=== PATIENT | female | born 1960 | race Caucasian/White ===

== ENCOUNTER 2023-01-16 07:45 | Inpatient (IN) ==
[2023-01-16] MEDS ORDERED: ACETAMINOPHEN 1,000 MG/100 ML VIAL IV STA (08:04)
[2023-01-16] MEDS ORDERED: dexAMETHasone**PF** 10 MG/ML VIAL IV ONE (08:04)
[2023-01-16] MEDS ORDERED: LORazepam 2 MG/1 ML VIAL IV STA (08:04)
[2023-01-16] MEDS ORDERED: ALBUT/IPRATROP 3MG/0.5MG NEB 3 ML VIAL NEB ONE (08:04)
--- NOTE | 2023-01-16 08:08 | Emergency Department Note ---
Impression & Plan LLL pneumonia, Asthma exacerbation, Sepsis ED Provider Note Name: MACKENZIE MALIK Age: 62 Sex: F Arrives Via: Walk-In Informant: Patient ED Provider: Robbie Adrian MD Chief Complaint: Shortness of breath Impression: Impressions above Medical Decision Makin-year-old female with history of asthma, hypertension, asthma, hyperglycemia arrives for evaluation of worsening shortness of breath. Patient is unwell appearing with tachycardia fever and appears septic. Septic work-up initiated. She has a left lower lobe infiltrate on chest x-ray consistent with pneumonia likely post flu versus new viral infection. She was treated empirically with cefepime and azithromycin for community-acquired pneumonia. She was given 2 L normal saline bolus throughout her stay. She has not hypotensive or lactic acid remains good. I will note that fluid resuscitation was based off ideal body weight with a BMI greater than 30 as she received the 1.5 L fluid plus. Repeat examinations patient is well-hydrated heart rate is coming down. I do not feel she would be stable for discharge at this time given her examination. She was given some steroids and DuoNeb for diffuse wheezing likely an exacerbation of her COPD/asthma history. She was also given a small dose of Ativan as she was quite anxious with being sick. I would patient's oxygen started decreasing throughout her stay and this clearly was consistent with need for hospitalization. I do not feel that this is consistent with PE/dissection given the other clear etiology being pneumonia. Prior Medical Record and Triage/Nursing Notes reviewed by Me External chart review by me Differentials: Pneumonia, PE, dissection, pneumothorax, CHF, ACS, sepsis, COPD exacerbation amongst multiple other pathologies considered. Vital Signs: reviewed and remarkable for tachycardia, febrile, hypertensive Interventions: Tylenol IV, DuoNeb, Ativan IV, Decadron 10 mg IV, cefepime IV, azithromycin IV, normal saline bolus 2 L IV Labs:Reviewed and remarkable for elevated CRP amongst other abnormalities noted Imagin view chest x-ray interpreted by me reveals a left lower lobe infiltrate which is new EKG:As per my interpretation. Indication sepsis. Sinus tachycardia at 109 bpm with QTc 482. There is no ectopy nor ischemia. There is no previous EKG for comparison Cardiac/Tele Monitoring: Cardiac Monitoring: An Order was placed for continuous cardiac monitoring. The monitor shows a rate of 110 with a sinus tach rhythm. Consults:Hospitalist Plan: Disposition:Hospitalization. Condition: Fair History of Present Illness:62-year-old female arrives for evaluation of shortness of breath. Patient notes she had influenza 2 to 3 weeks ago. Over the last few days worsening shortness of breath cough, wheezing, congestion, fatigue. This morning worsening breathing difficulty. She notes she is having a lot of difficulty catching her breath. She was wheezing loudly at home without seems to have stopped. Denies any specific chest pain, syncope, back pain, nausea, vomiting, abdominal pain or other concerning signs or symptoms. No medications prior to arrival. Past History:See Below Home Medications:See Below Allergies:See Below Vitals:Blood Pressure: 171/100, Pulse 115, RR 20, T 38.4C, O2 95% on RA Physical Exam: GENERAL: Patient is ill appearing and in moderate distress. EYES: No scleral icterus, unremarkable pupils. ENT: Mucous membranes moist, no nasal congestion. NECK: No masses appreciated, nomeningismus, trachea is midline. RESPIRATORY: Tachypneic, dyspneic with diffuse tight lung sounds and rhonchi throughout the left lung. CARDIOVASCULAR: Tachycardic GASTROINTESTINAL: Abdomen soft, non-tender, no peritonitis.Bowel sounds positive.No masses appreciated. EXTREMITIES: Normal motion all extremities, no cyanosis, no edema. NEUROLOGIC: Alert and oriented, no focal neurologic deficit appreciated SKIN: No rash, no jaundice, no diaphoresis. PSYCH: Severely anxious, hyperventilating GCS: 15 ED Course: Times/Reassessments: Patient is vastly improved with fluids Ativan and breathing treatment. She does appear better but she is still clearly ill and I feel hospitalization is indicated especially as her oxygen has gradually worsened Robbie Adrian MD Past Med/Surg History Medical History (Updated 01/17/23 @ 13:48 by Robbie Adrian MD) Asthma GERD (gastroesophageal reflux disease) HTN (hypertension) Hypothyroidism Surgical History S/P ankle fusion S/P breast implant, silicone bilateral S/P cholecystectomy S/P hysterectomy S/P tonsillectomy Family History Other Diabetes Heart disease Hypercholesteremia Hypertension Social History Smoking Status: Never smoker Hx Alcohol Use: Yes Alcohol type: wine Hx Substance Use: No Preferred Language: Lithuanian Communication Ability: Effective Platform [employer] Required: No Beliefs That Will Affect Care: None Current Living Situation: Spouse Other Information That Helps Us Care for You: No Feels Safe at Home: Yes Safety Concerns: Feels Safe At This Time Assistive Devices: None Allergies Allergies Allergy/AdvReac Type Severity Reaction Status Date / Time Sulfa (Sulfonamide Allergy Verified 01/16/23 08:40 Antibiotics) doxycycline AdvReac Rash Verified 01/16/23 08:40 Home Meds Home Medications Medication Instructions Recorded Confirmed albuterol sulfate 90 mcg/actuation 1 puffs inhalation Q4H 12/26/19 01/16/23 breath activated powder inhaler,sensor cetirizine 10 mg tablet 10 mg PO DAILY 12/26/19 01/16/23 levothyroxine 50 mcg capsule 50 mcg PO DAILY 12/26/19 01/16/23 montelukast 10 mg tablet 10 mg PO DAILY 12/26/19 01/16/23 (Singulair) omeprazole 20 mg capsule,delayed 20 mg PO DAILY 12/26/19 01/16/23 release diclofenac sodium 75 mg 75 mg PO BID 01/16/23 01/16/23 tablet,delayed release fluticasone fur. 200 mcg-umeclid 1 inh inhalation DAILY 01/16/23 01/16/23 62.5 mcg-vilant 25 mcg inhalat.powder (Trelegy Ellipta) lisinopril 10 mg tablet 10 mg PO DAILY 01/16/23 01/16/23 trazodone 150 mg tablet 150 mg PO HS 01/16/23 01/16/23 Results & Data (ED) Vital Signs Vital Signs - 24 hr 01/16/23 07:46 01/16/23 08:03 Temperature 37.5 C Temperature Source Temporal Artery Scan Pulse Rate 116 H 115 H Respiratory Rate 20 Respiratory Effort / Characteristics Non-Labored Respiratory Depth Normal Blood Pressure 171/100 H Blood Pressure Mean 123 Pulse Oximetry 95 Oxygen Delivery Method Room Air Sepsis Recent Fever Within 48 Hours No Sepsis New/Unexplained Change in Mental Status N/A Sepsis Action Taken by Nursing No Action Required Laboratory Data 01/17/23 07:42 01/17/23 07:42 Lab Results 01/16/23 01/16/23 01/16/23 Range/Units 08:08 08:08 08:08 WBC 12.39 H (4.8-10.8) K/ul RBC 4.62 (4.20-5.40) M/uL Hgb 13.2 (12.0-16.0) g/dl Hct 38.9 (37.0-47.0) % MCV 84.2 (80.0-100.0) fL MCH 28.6 (25.0-34.0) pg MCHC 33.9 (32.0-36.0) g/dL RDW Std Deviation 42.7 (36.4-46.3) fL RDW Coeff of Freddy 13.8 (11.5-14.5) % Plt Count 197 (130-400) K/uL MPV 9.3 L (9.4-12.4) fL Immature Gran % (Auto) 0.4 % Neut % (Auto) 83.8 % Lymph % (Auto) 10.7 % [place] % (Auto) 3.4 % Eos % (Auto) 1.4 % Baso % (Auto) 0.3 % Neut # (Auto) 10.38 H (1.40-6.50) K/uL Lymph # (Auto) 1.33 (1.2-3.4) K/uL [place] # (Auto) 0.42 (0.11-0.59) K/uL Eos # (Auto) 0.17 (0-0.50) K/uL Baso # (Auto) 0.04 (0-0.2) K/uL Immature Gran # (Auto) 0.05 (0.01-0.20) K/uL ESR (0-30) mm/hr Sodium 138 (136-145) mmol/L Potassium 4.0 (3.5-5.1) mmol/L Chloride 106 (98-107) mmol/L Carbon Dioxide 21 (21-32) mmol/L Anion Gap 11 (3-11) BUN 11 (6-23) mg/dl Creatinine 0.77 (0.6-1.2) mg/dl Est Cr Clr Drug Dosing Not Reportable Est GFR ( Amer) 95.9 ml/min Est GFR (Non-Af Amer) 82.8 ml/min BUN/Creatinine Ratio 14.3 (10-20) Glucose 227 H (70-99(Fasting)) mg/dl Lactate 1.7 (0.4-2.0) mmol/L Calcium 9.6 (8.6-10.3) mg/dl Magnesium 1.6 L (1.7-2.4) mg/dl Total Bilirubin 0.6 (0.2-1.0) mg/dl Direct Bilirubin 0.1 (0-0.2) mg/dl AST 17 (13-39) U/L ALT 21 (7-52) U/L Alkaline Phosphatase 81 (34-104) U/L Troponin I High Sens 7.7 (0-14) pg/ml C-Reactive Protein 3.20 H (0-0.5) mg/dl Total Protein 7.4 (6.0-8.3) gm/dl Albumin 4.3 (3.4-5.0) gm/dl Procalcitonin (0-0.5) ng/ml TSH (0.300-4.500) uIu/ml Urine Color Urine Appearance (Clear) Urine pH (4.5-7.5) Ur Specific [place] (1.000-1.030) Urine Protein (Negative) Urine Glucose (UA) (Negative) Urine Ketones (Negative) Urine Blood (Negative) Urine Nitrite (Negative) Urine Bilirubin (Negative) Urine Urobilinogen (Negative) Ur Leukocyte Esterase (Negative) Nasal Screen MRSA (PCR) (Negative) Adenovirus (PCR) (NotDetected) Anaplasma Smear B. pertussis DNA (PCR) (NotDetected) B.parapertussis DNA PCR (NotDetected) Lyme Disease IgG Ab (Negative) Lyme Disease IgM Ab (Negative) C. pneumoniae DNA (PCR) (NotDetected) Coronavirus OC43 (PCR) (NotDetected) Coronavirus HKU1 (PCR) (NotDetected) Coronavirus 229E (PCR) (NotDetected) SARS-CoV-2 (PCR) (NotDetected) Coronavirus NL63 (PCR) (NotDetected) Human Metapneumovir PCR (NotDetected) Influenza Type A (PCR) (NotDetected) Influenza Type B (PCR) (NotDetected) M. pneumoniae (PCR) (NotDetected) Parainfluenza 1 (PCR) (NotDetected) Parainfluenza 2 (PCR) (NotDetected) Parainfluenza 3 (PCR) (NotDetected) Parainfluenza 4 (PCR) (NotDetected) RSV (RT-PCR) (Neg) RSV (PCR) (NotDetected) Entero/Rhino (PCR) (NotDetected) 01/16/23 01/16/23 01/16/23 Range/Units 08:08 08:08 08:19 WBC (4.8-10.8) K/ul RBC (4.20-5.40) M/uL Hgb (12.0-16.0) g/dl Hct (37.0-47.0) % MCV (80.0-100.0) fL MCH (25.0-34.0) pg MCHC (32.0-36.0) g/dL RDW Std Deviation (36.4-46.3) fL RDW Coeff of Freddy (11.5-14.5) % Plt Count (130-400) K/uL MPV (9.4-12.4) fL Immature Gran % (Auto) % Neut % (Auto) % Lymph % (Auto) % [place] % (Auto) % Eos % (Auto) % Baso % (Auto) % Neut # (Auto) (1.40-6.50) K/uL Lymph # (Auto) (1.2-3.4) K/uL [place] # (Auto) (0.11-0.59) K/uL Eos # (Auto) (0-0.50) K/uL Baso # (Auto) (0-0.2) K/uL Immature Gran # (Auto) (0.01-0.20) K/uL ESR 32 H (0-30) mm/hr Sodium (136-145) mmol/L Potassium (3.5-5.1) mmol/L Chloride (98-107) mmol/L Carbon Dioxide (21-32) mmol/L Anion Gap (3-11) BUN (6-23) mg/dl Creatinine (0.6-1.2) mg/dl Est Cr Clr Drug Dosing Est GFR ( Amer) ml/min Est GFR (Non-Af Amer) ml/min BUN/Creatinine Ratio (10-20) Glucose (70-99(Fasting)) mg/dl Lactate (0.4-2.0) mmol/L Calcium (8.6-10.3) mg/dl Magnesium (1.7-2.4) mg/dl Total Bilirubin (0.2-1.0) mg/dl Direct Bilirubin (0-0.2) mg/dl AST (13-39) U/L ALT (7-52) U/L Alkaline Phosphatase (34-104) U/L Troponin I High Sens (0-14) pg/ml C-Reactive Protein (0-0.5) mg/dl Total Protein (6.0-8.3) gm/dl Albumin (3.4-5.0) gm/dl Procalcitonin < 0.05 (0-0.5) ng/ml TSH (0.300-4.500) uIu/ml Urine Color Urine Appearance (Clear) Urine pH (4.5-7.5) Ur Specific [place] (1.000-1.030) Urine Protein (Negative) Urine Glucose (UA) (Negative) Urine Ketones (Negative) Urine Blood (Negative) Urine Nitrite (Negative) Urine Bilirubin (Negative) Urine Urobilinogen (Negative) Ur Leukocyte Esterase (Negative) Nasal Screen MRSA (PCR) (Negative) Adenovirus (PCR) Not Detected (NotDetected) Anaplasma Smear B. pertussis DNA (PCR) Not Detected (NotDetected) B.parapertussis DNA PCR Not Detected (NotDetected) Lyme Disease IgG Ab (Negative) Lyme Disease IgM Ab (Negative) C. pneumoniae DNA (PCR) Not Detected (NotDetected) Coronavirus OC43 (PCR) Not Detected (NotDetected) Coronavirus HKU1 (PCR) Not Detected (NotDetected) Coronavirus 229E (PCR) Not Detected (NotDetected) SARS-CoV-2 (PCR) Not Detected (NotDetected) Coronavirus NL63 (PCR) Not Detected (NotDetected) Human Metapneumovir PCR DETECTED A* (NotDetected) Influenza Type A (PCR) Not Detected (NotDetected) Influenza Type B (PCR) Not Detected (NotDetected) M. pneumoniae (PCR) Not Detected (NotDetected) Parainfluenza 1 (PCR) Not Detected (NotDetected) Parainfluenza 2 (PCR) Not Detected (NotDetected) Parainfluenza 3 (PCR) Not Detected (NotDetected) Parainfluenza 4 (PCR) Not Detected (NotDetected) RSV (RT-PCR) (Neg) RSV (PCR) Not Detected (NotDetected) Entero/Rhino (PCR) Not Detected (NotDetected) 01/16/23 01/16/23 01/16/23 Range/Units 08:20 09:32 10:50 WBC (4.8-10.8) K/ul RBC (4.20-5.40) M/uL Hgb (12.0-16.0) g/dl Hct (37.0-47.0) % MCV (80.0-100.0) fL MCH (25.0-34.0) pg MCHC (32.0-36.0) g/dL RDW Std Deviation (36.4-46.3) fL RDW Coeff of Freddy (11.5-14.5) % Plt Count (130-400) K/uL MPV (9.4-12.4) fL Immature Gran % (Auto) % Neut % (Auto) % Lymph % (Auto) % [place] % (Auto) % Eos % (Auto) % Baso % (Auto) % Neut # (Auto) (1.40-6.50) K/uL Lymph # (Auto) (1.2-3.4) K/uL [place] # (Auto) (0.11-0.59) K/uL Eos # (Auto) (0-0.50) K/uL Baso # (Auto) (0-0.2) K/uL Immature Gran # (Auto) (0.01-0.20) K/uL ESR (0-30) mm/hr Sodium (136-145) mmol/L Potassium (3.5-5.1) mmol/L Chloride (98-107) mmol/L Carbon Dioxide (21-32) mmol/L Anion Gap (3-11) BUN (6-23) mg/dl Creatinine (0.6-1.2) mg/dl Est Cr Clr Drug Dosing Est GFR ( Amer) ml/min Est GFR (Non-Af Amer) ml/min BUN/Creatinine Ratio (10-20) Glucose (70-99(Fasting)) mg/dl Lactate (0.4-2.0) mmol/L Calcium (8.6-10.3) mg/dl Magnesium (1.7-2.4) mg/dl Total Bilirubin (0.2-1.0) mg/dl Direct Bilirubin (0-0.2) mg/dl AST (13-39) U/L ALT (7-52) U/L Alkaline Phosphatase (34-104) U/L Troponin I High Sens (0-14) pg/ml C-Reactive Protein (0-0.5) mg/dl Total Protein (6.0-8.3) gm/dl Albumin (3.4-5.0) gm/dl Procalcitonin (0-0.5) ng/ml TSH (0.300-4.500) uIu/ml Urine Color Yellow Urine Appearance Clear (Clear) Urine pH 5.5 (4.5-7.5) Ur Specific [place] 1.017 (1.000-1.030) Urine Protein Negative (Negative) Urine Glucose (UA) 1+ H (Negative) Urine Ketones 1+ H (Negative) Urine Blood Negative (Negative) Urine Nitrite Negative (Negative) Urine Bilirubin Negative (Negative) Urine Urobilinogen Negative (Negative) Ur Leukocyte Esterase Negative (Negative) Nasal Screen MRSA (PCR) Negative (Negative) Adenovirus (PCR) (NotDetected) Anaplasma Smear B. pertussis DNA (PCR) (NotDetected) B.parapertussis DNA PCR (NotDetected) Lyme Disease IgG Ab (Negative) Lyme Disease IgM Ab (Negative) C. pneumoniae DNA (PCR) (NotDetected) Coronavirus OC43 (PCR) (NotDetected) Coronavirus HKU1 (PCR) (NotDetected) Coronavirus 229E (PCR) (NotDetected) SARS-CoV-2 (PCR) NEGATIVE (NotDetected) Coronavirus NL63 (PCR) (NotDetected) Human Metapneumovir PCR (NotDetected) Influenza Type A (PCR) Negative (NotDetected) Influenza Type B (PCR) Negative (NotDetected) M. pneumoniae (PCR) (NotDetected) Parainfluenza 1 (PCR) (NotDetected) Parainfluenza 2 (PCR) (NotDetected) Parainfluenza 3 (PCR) (NotDetected) Parainfluenza 4 (PCR) (NotDetected) RSV (RT-PCR) Negative (Neg) RSV (PCR) (NotDetected) Entero/Rhino (PCR) (NotDetected) 01/16/23 01/16/23 01/16/23 Range/Units 10:56 10:56 10:56 WBC (4.8-10.8) K/ul RBC (4.20-5.40) M/uL Hgb (12.0-16.0) g/dl Hct (37.0-47.0) % MCV (80.0-100.0) fL MCH (25.0-34.0) pg MCHC (32.0-36.0) g/dL RDW Std Deviation (36.4-46.3) fL RDW Coeff of Freddy (11.5-14.5) % Plt Count (130-400) K/uL MPV (9.4-12.4) fL Immature Gran % (Auto) % Neut % (Auto) % Lymph % (Auto) % [place] % (Auto) % Eos % (Auto) % Baso % (Auto) % Neut # (Auto) (1.40-6.50) K/uL Lymph # (Auto) (1.2-3.4) K/uL [place] # (Auto) (0.11-0.59) K/uL Eos # (Auto) (0-0.50) K/uL Baso # (Auto) (0-0.2) K/uL Immature Gran # (Auto) (0.01-0.20) K/uL ESR (0-30) mm/hr Sodium (136-145) mmol/L Potassium (3.5-5.1) mmol/L Chloride (98-107) mmol/L Carbon Dioxide (21-32) mmol/L Anion Gap (3-11) BUN (6-23) mg/dl Creatinine (0.6-1.2) mg/dl Est Cr Clr Drug Dosing Est GFR ( Amer) ml/min Est GFR (Non-Af Amer) ml/min BUN/Creatinine Ratio (10-20) Glucose (70-99(Fasting)) mg/dl Lactate (0.4-2.0) mmol/L Calcium (8.6-10.3) mg/dl Magnesium (1.7-2.4) mg/dl Total Bilirubin (0.2-1.0) mg/dl Direct Bilirubin (0-0.2) mg/dl AST (13-39) U/L ALT (7-52) U/L Alkaline Phosphatase (34-104) U/L Troponin I High Sens (0-14) pg/ml C-Reactive Protein (0-0.5) mg/dl Total Protein (6.0-8.3) gm/dl Albumin (3.4-5.0) gm/dl Procalcitonin (0-0.5) ng/ml TSH 1.421 (0.300-4.500) uIu/ml Urine Color Urine Appearance (Clear) Urine pH (4.5-7.5) Ur Specific [place] (1.000-1.030) Urine Protein (Negative) Urine Glucose (UA) (Negative) Urine Ketones (Negative) Urine Blood (Negative) Urine Nitrite (Negative) Urine Bilirubin (Negative) Urine Urobilinogen (Negative) Ur Leukocyte Esterase (Negative) Nasal Screen MRSA (PCR) (Negative) Adenovirus (PCR) (NotDetected) Anaplasma Smear See Comment B. pertussis DNA (PCR) (NotDetected) B.parapertussis DNA PCR (NotDetected) Lyme Disease IgG Ab Negative (Negative) Lyme Disease IgM Ab Negative (Negative) C. pneumoniae DNA (PCR) (NotDetected) Coronavirus OC43 (PCR) (NotDetected) Coronavirus HKU1 (PCR) (NotDetected) Coronavirus 229E (PCR) (NotDetected) SARS-CoV-2 (PCR) (NotDetected) Coronavirus NL63 (PCR) (NotDetected) Human Metapneumovir PCR (NotDetected) Influenza Type A (PCR) (NotDetected) Influenza Type B (PCR) (NotDetected) M. pneumoniae (PCR) (NotDetected) Parainfluenza 1 (PCR) (NotDetected) Parainfluenza 2 (PCR) (NotDetected) Parainfluenza 3 (PCR) (NotDetected) Parainfluenza 4 (PCR) (NotDetected) RSV (RT-PCR) (Neg) RSV (PCR) (NotDetected) Entero/Rhino (PCR) (NotDetected) Administered Medications Albuterol (Albut/Ipratrop 3mg/0.5mg Neb 3 Ml Vial) 3 ml NEB Q4R MEGAN; Protocol Stop: 02/15/23 14:59 Last Admin: 01/17/23 10:52 Dose: 3 ml Documented By: Admin: 01/17/23 07:22 Dose: Not Given Documented By: Admin: 01/17/23 02:27 Dose: 3 ml Documented By: Admin: 01/16/23 22:30 Dose: 3 ml Documented By: Admin: 01/16/23 19:07 Dose: 3 ml Documented By: Admin: 01/16/23 15:32 Dose: 3 ml Documented By: KENNETH Budesonide (Budesonide 0.5 Mg/2 Ml Vial (Pulmicort)) 0.5 mg NEB BIDR MEGAN Stop: 02/15/23 18:59 Last Admin: 01/17/23 07:22 Dose: 0.5 mg Documented By: Admin: 01/16/23 19:07 Dose: 0.5 mg Documented By: LIZA Cetirizine HCl (Cetirizine Hcl 10 Mg Tablet) 10 mg PO DAILY MEGAN Stop: 02/16/23 08:59 Last Admin: 01/17/23 08:48 Dose: 10 mg Documented By: ROSHNI Enoxaparin Sodium (Enoxaparin Inj 40 Mg/0.4 Ml Syr) 40 mg SQ QPM MEGAN Stop: 02/15/23 20:59 Last Admin: 01/16/23 21:07 Dose: 40 mg Documented By: TIFF Formoterol Fumarate (Formoterol 20 Mcg/2 Ml Vial) 20 mcg NEB BIDR MEGAN Stop: 02/15/23 18:59 Last Admin: 01/17/23 07:22 Dose: 20 mcg Documented By: Admin: 01/16/23 20:09 Dose: Not Given Documented By: LIZA Guaifenesin (Guaifenesin 600 Mg Tabcr) 1,200 mg PO BID MEGAN Stop: 02/16/23 08:59 Last Admin: 01/17/23 08:48 Dose: 1,200 mg Documented By: OO Ampicillin Sodium/Sulbactam Sodium 3,000 mg/ Sodium Chloride 108 mls @ 200 mls/hr IV Q6 MEGAN; Protocol Stop: 01/23/23 16:59 Last Infusion: 01/17/23 12:45 Dose: 0 mls/hr Documented By: Admin: 01/17/23 12:07 Dose: 200 mls/hr Documented By: Infusion: 01/17/23 06:21 Dose: 0 mls/hr Documented By: Admin: 01/17/23 05:48 Dose: 200 mls/hr Documented By: Infusion: 01/16/23 23:46 Dose: 0 mls/hr Documented By: Admin: 01/16/23 23:13 Dose: 200 mls/hr Documented By: Infusion: 01/16/23 18:28 Dose: 0 mls/hr Documented By: Admin: 01/16/23 17:50 Dose: 200 mls/hr Documented By: OO Azithromycin 500 mg/ Dextrose 255 mls @ 127.5 mls/hr IV QAM MEGAN; Protocol Stop: 01/19/23 08:59 Last Infusion: 01/17/23 12:07 Dose: 0 mls/hr Documented By: Admin: 01/17/23 09:50 Dose: 127.5 mls/hr Documented By: OKate Methylprednisolone 40 mg/ (Syringe) 0.64 mls @ 1.5 mls/min IV BID MEGAN Stop: 02/15/23 20:59 Last Admin: 01/17/23 09:50 Dose: 1.5 mls/min Documented By: Admin: 01/16/23 21:08 Dose: 1.5 mls/min Documented By: ABL Insulin Aspart (Insulin Aspart Per Unit Charge) 0 units SC ACHS MEGAN Stop: 02/15/23 16:59 Last Admin: 01/17/23 12:16 Dose: 10 units Documented By: OO Co-signed By: YEHUDA Admin: 01/17/23 08:05 Dose: 7 units Documented By: OO Co-signed By: YEHUDA Admin: 01/16/23 21:11 Dose: 4 units Documented By: ABL Co-signed By: OZZY Admin: 01/16/23 17:17 Dose: 17 units Documented By: OKate Co-signed By: YEHUDA Levothyroxine Sodium (Levothyroxine Sodium 50 Mcg Tablet) [facility]: 02/16/23 06:29 Last Admin: 01/17/23 05:48 Dose: 50 mcg Documented By: ABL Montelukast Sodium (Montelukast Sodium 10 Mg Tablet) 10 mg PO [facility] Stop: 02/15/23 20:59 Last Admin: 01/16/23 21:08 Dose: 10 mg Documented By: ABL Pantoprazole Sodium (Pantoprazole 40 Mg Tab) 40 mg PO DAILY [facility]; Protocol Stop: 02/16/23 08:59 Last Admin: 01/17/23 08:50 Dose: 40 mg Documented By: OKate Trazodone HCl (Trazodone Hcl 50 Mg Tab) 150 mg PO [facility] Stop: 02/15/23 20:59 Last Admin: 01/16/23 21:08 Dose: 150 mg Documented By: ABL Discontinued Medications Albuterol (Albut/Ipratrop 3mg/0.5mg Neb 3 Ml Vial) 12 ml NEB ONE ONE; Protocol Stop: 01/16/23 08:05 Last Admin: 01/16/23 08:17 Dose: 12 ml Documented By: LIBBY Budesonide (Budesonide 0.5 Mg/2 Ml Vial (Pulmicort)) 0.5 mg NEB ONE STA Stop: 01/16/23 11:38 Last Admin: 01/16/23 14:10 Dose: Not Given Documented By: ROSHNI Cetirizine HCl (Cetirizine Hcl 10 Mg Tablet) 10 mg PO NOW STA Stop: 01/16/23 11:28 Last Admin: 01/16/23 14:10 Dose: Not Given Documented By: ROSHNI Cetirizine HCl (Cetirizine Hcl 10 Mg Tablet) 10 mg PO NOW STA Stop: 01/16/23 14:08 Last Admin: 01/16/23 15:11 Dose: 10 mg Documented By: ROSHNI Dexamethasone Sodium Phosphate (DexamethasonePf 10 Mg/Ml Vial) 10 mg IV NOW ONE Stop: 01/16/23 08:05 Last Admin: 01/16/23 08:33 Dose: 10 mg Documented By: EMILE Formoterol Fumarate (Formoterol 20 Mcg/2 Ml Vial) 20 mcg NEB ONE STA Stop: 01/16/23 11:38 Last Admin: 01/16/23 14:10 Dose: Not Given Documented By: ROSHNI Guaifenesin (Guaifenesin 600 Mg Tabcr) 1,200 mg PO ONE ONE Stop: 01/16/23 11:41 Last Admin: 01/16/23 14:10 Dose: Not Given Documented By: ROSHNI Guaifenesin (Guaifenesin 600 Mg Tabcr) 1,200 mg PO ONE ONE Stop: 01/16/23 14:16 Last Admin: 01/16/23 15:11 Dose: 1,200 mg Documented By: ROSHNI Sodium Chloride (Nss 1000ml) 1,000 mls @ 999 mls/hr IV .Q1H1M MEGAN Stop: 01/16/23 09:15 Last Infusion: 01/16/23 10:12 Dose: 0 mls/hr Documented By: Admin: 01/16/23 08:24 Dose: 999 mls/hr Documented By: EMILE Acetaminophen (Ofirmev) 1,000 mg in 100 mls @ 400 mls/hr IV NOW STA Stop: 01/16/23 08:18 Last Infusion: 01/16/23 08:50 Dose: 0 mls/hr Documented By: Admin: 01/16/23 08:33 Dose: 400 mls/hr Documented By: EMILE Cefepime HCl (Maxipime) 2,000 mg in 20 mls @ 5 mls/min IV NOW STA; Protocol Stop: 01/16/23 08:53 Last Admin: 01/16/23 09:02 Dose: 5 mls/min Documented By: EMILE Azithromycin 500 mg/ Dextrose 255 mls @ 125 mls/hr IV ONE ONE Stop: 01/16/23 10:52 Last Infusion: 01/16/23 11:51 Dose: 0 mls/hr Documented By: Admin: 01/16/23 09:12 Dose: 125 mls/hr Documented By: EMILE Sodium Chloride (Nss 1000ml) 1,000 mls @ 999 mls/hr IV .Q1H1M ONE Stop: 01/16/23 09:59 Last Infusion: 01/16/23 13:02 Dose: 0 mls/hr Documented By: Admin: 01/16/23 09:06 Dose: 999 mls/hr Documented By: DMH Pantoprazole Sodium 40 mg/ (Syringe) 10 mls @ 5 mls/min IV 1145 ONE Stop: 01/16/23 11:46 Last Admin: 01/16/23 12:37 Dose: 5 mls/min Documented By: OO Magnesium Sulfate/Dextrose (Magnesium Sulfate / D5w) 1 gm in 100 mls @ 50 mls/hr IV ONE ONE Stop: 01/16/23 14:58 Last Infusion: 01/16/23 16:13 Dose: 0 mls/hr Documented By: Admin: 01/16/23 13:55 Dose: 50 mls/hr Documented By: OO Insulin Human Regular 8 units/ (Syringe) 8 mls @ 30 mls/min IV NOW ONE Stop: 01/16/23 17:01 Last Admin: 01/16/23 17:37 Dose: 30 mls/min Documented By: OO Co-signed By: MARCO Insulin Aspart (Insulin Aspart Per Unit Charge) 0 units SC ACHS [facility] Stop: 02/15/23 12:59 Last Admin: 01/16/23 18:00 Dose: Not Given Documented By: Admin: 01/16/23 13:32 Dose: 4 units Documented By: OKate Co-signed By: MARCO Insulin Aspart (Insulin Aspart Per Unit Charge) 0 units SC TODAY@0000 ONE Stop: 01/17/23 00:01 Last Admin: 01/16/23 23:13 Dose: 3 units Documented By: ABL Co-signed By: OZZY Insulin Glargine (Lantus Per Unit Charge) 20 units SQ NOW ONE Stop: 01/16/23 17:07 Last Admin: 01/16/23 17:37 Dose: 20 units Documented By: OO Co-signed By: MARCO Insulin Glargine (Lantus Per Unit Charge) 15 units SQ DAILY [facility] Stop: 02/16/23 08:59 Last Admin: 01/17/23 09:18 Dose: 15 units Documented By: OO Co-signed By: YEHUDA Insulin Glargine (Lantus Per Unit Charge) 15 units SQ ONE ONE Stop: 01/17/23 11:46 Last Admin: 01/17/23 12:17 Dose: 15 units Documented By: OO Co-signed By: YEHUDA Ioversol (Optiray 320 500ml) 115 ml IV ONCE ONE Stop: 01/16/23 11:18 Last Admin: 01/16/23 11:18 Dose: 115 ml Documented By: SHASTA Lorazepam (Lorazepam 2 Mg/1 Ml Vial) 0.5 mg IV NOW STA Stop: 01/16/23 08:05 Last Admin: 01/16/23 08:33 Dose: 0.5 mg Documented By: EMILE Montelukast Sodium (Montelukast Sodium 10 Mg Tablet) 10 mg PO NOW ONE Stop: 01/16/23 11:28 Last Admin: 01/16/23 14:10 Dose: Not Given Documented By: OO Discharge Plan Visit Data Chief Complaint: Shortness of Breath/Dyspnea Stated Complaint: SOB ED Provider: Robbie Adrian Discharge Problem: LLL pneumonia, Asthma exacerbation, Sepsis Patient Disposition: Admitted As Inpatient Discharge Instructions Interventions: ED Discharge Assessment Last Done: 01/16/23 12:15 LLL pneumonia Qualifiers: Pneumonia type: due to unspecified organism Qualified Code(s): J18.9 - Pneumonia, unspecified organism Asthma exacerbation Qualifiers: Asthma severity: mild Asthma persistence: intermittent Qualified Code(s): J45.21 - Mild intermittent asthma with (acute) exacerbation Sepsis Qualifiers: Sepsis type: sepsis due to unspecified organism Sepsis acute organ dysfunction status: without acute organ dysfunction Qualified Code(s): A41.9 - Sepsis, unspecified organism
[2023-01-16] MEDS ORDERED: SODIUM CHLORIDE 0.9% 1000ML 1,000 ML IV SCH (08:15)
[2023-01-16 08:26] LABS: Basophils # (auto) 0.04 K/uL (0-0.2); Basophils % (auto) 0.3 %; Eosinophils # (auto) 0.17 K/uL (0-0.50); Eosinophils % (auto) 1.4 %; Hematocrit (blood only) 38.9 % (37.0-47.0); Hemoglobin 13.2 g/dl (12.0-16.0); Immature Granulocytes # (auto) 0.05 K/uL (0.01-0.20); Immature Granulocytes % (auto) 0.4 %; Lymphocytes # (auto) 1.33 K/uL (1.2-3.4); Lymphocytes % (auto) 10.7 %; Mean Corpuscular Hemoglobin 28.6 pg (25.0-34.0); Mean Corpuscular Hgb Conc 33.9 g/dL (32.0-36.0); Mean Corpuscular Volume 84.2 fL (80.0-100.0); Mean Platelet Volume 9.3 fL (9.4-12.4); Monocytes # (auto) 0.42 K/uL (0.11-0.59); Monocytes % (auto) 3.4 %; Neutrophils # (auto) 10.38 K/uL (1.40-6.50); Neutrophils % (auto) 83.8 %; Platelet Count 197 K/uL (130-400); RDW Coefficient of Variation 13.8 % (11.5-14.5); RDW Standard Deviation 42.7 fL (36.4-46.3); Red Blood Count 4.62 M/uL (4.20-5.40); White Blood Count 12.39 K/ul (4.8-10.8)
[2023-01-16 08:40] LABS: Alanine Aminotransferase 21 U/L (7-52); Albumin Level 4.3 gm/dl (3.4-5.0); Alkaline Phosphatase 81 U/L (34-104); Anion Gap 11 (3-11); Aspartate Aminotransferase 17 U/L (13-39); BUN Creatinine Ratio 14.3 (10-20); Bilirubin Direct 0.1 mg/dl (0-0.2); Bilirubin,Total 0.6 mg/dl (0.2-1.0); Blood Urea Nitrogen 11 mg/dl (6-23); Calcium 9.6 mg/dl (8.6-10.3); Carbon Dioxide 21 mmol/L (21-32); Chloride 106 mmol/L (98-107); Est GFR (African American) 95.9 ml/min; Est GFR (Non-African American) 82.8 ml/min; Glucose 227 mg/dl (70-99(Fasting)); Magnesium 1.6 mg/dl (1.7-2.4); Sodium 138 mmol/L (136-145); Total Protein 7.4 gm/dl (6.0-8.3)
[2023-01-16 08:47] LABS: Troponin I High Sensitivity 7.7 pg/ml (0-14)
[2023-01-16] MEDS ORDERED: CEFEPIME 2,000 MG/20 ML VIAL IV STA (08:50)
[2023-01-16] MEDS ORDERED: AZITHROMYCIN 500 MG in DEXTROSE 5% 250 ML IV ONE (08:50)
--- NOTE | 2023-01-16 08:56 | XRay Report ---
SINGLE VIEW CHEST CLINICAL HISTORY: Sepsis. FINDINGS: An AP, portable, upright chest radiograph is obtained. No prior studies are available for c omparison at the time of dictation. The cardiomediastinal silhouette is unremarkable. There is airspa ce consolidation at the left lung base. The right lung appears clear. No large pleural effusion or pn eumothorax is seen. The skeletal structures are osteopenic. The bony thorax is grossly intact. IMPRESSION: Left basilar consolidation is typical for pneumonia/aspiration pneumonitis. Clinical jarett elation will be required and radiographic follow-up to resolution is recommended. ACT 112: Negative or not required by law. Electronically signed by: Jay Jay Colin M.D. 01/16/2023 8:54 AM
[2023-01-16] MEDS ORDERED: SODIUM CHLORIDE 0.9% 1000ML 1,000 ML IV ONE (08:59)
[2023-01-16 09:23] LABS: Influenza A virus by PCR Negative (Neg); Influenza B virus by PCR Negative (Neg); RSV by PCR Negative (Neg); SARS CoV2 RNA(COVID-19) Ceph NEGATIVE (Negative)
[2023-01-16 09:43] LABS: Appearance Urine Clear (Clear); Bilirubin Urine Negative (Negative); Blood Urine Negative (Negative); Color Urine Yellow; Glucose Urine UA 1+ (Negative); Ketones Urine 1+ (Negative); Leukocyte Esterase Urine Negative (Negative); Nitrite Urine Negative (Negative); Protein Urine Negative (Negative); Specific Gravity Urine 1.017 (1.000-1.030); Urobilinogen Urine Negative (Negative); pH Urine 5.5 (4.5-7.5)
--- NOTE | 2023-01-16 10:29 | History & Physical Report ---
Date of Service January 16, 2023 Assessment & Plan (1) Sepsis: Plan: Suspected source PNA as above although significant spiking fever may be more viral given only mild changes on CT Biofire pending but Cepheid negative for influenza, RSV and COVID Lactate 1.7, no further fluid resuscitation required Recent tick found although not attached - Labs for lyme, anaplasmosis, ehrlichiosis and babesiosis sent Follow up blood and sputum cultures UA unremarkable and no symptoms suggestive of infection CT A/P due to right sided pain pending official read at time of admission CT for PE given hypoxia and tachycardia without significant CXR changes and negative procalcitonin pending official read at time of admission (2) Acute respiratory failure with hypoxia: Plan: Suspect due to asthma and PNA as below Aim O2 sats > 90% (3) Asthma exacerbation: Plan: Dexamethasone 10mg given in ER with duoneb with good improvement in her symptoms Continue duoneb QID + q2h PRN for shortness of breath Solu-Medrol 40mg IV BID (4) Pneumonia: Plan: Cefepime/Azithromycin given in ER Will cover for CAP given CT findings of consolidation Switch to CAP antibiotics with Unasyn and azithromycin (5) Hypothyroidism: Plan: TSH pending Continue levothyroxine 50 mcg PO daily (6) Asthma: Plan: Asthma treatment was escalated from Flovent to Trelegy Ellipta (ICS/LAMA) in August last year. She report compliance for this but given her diagnosis of asthma and not COPD I am unclear why she was not escalated to a LABA. Recommend ICS/LABA inhaler prescribed on discharge. Continue allergy treatment with montelukast and cetirizine. Consider PFTs +/- allergy/pulmonology follow up on discharge. (7) GERD (gastroesophageal reflux disease): Plan: Switch omeprazole to pantoprazole (will give initial dose IV now) (8) Hyperglycemia: Plan: Suspect due to steroid use but no HbA1C on file, will get with AM labs Novolog: --Goal BSG Range: Low 110 mg/dL, High 140 mg/dL --Correction Factor: 45 mg/dL/unit No carb coverage --BSGs ACHS if eating, q6h if npo (9) HTN (hypertension): Plan: Hold lisinopril due to chronic cough, recommend discontinuing on discharge although possibly can be reintroduced as an outpatient once cough has resolved as most likely due to uncontrolled asthma and should improve with ICS/LABA as above. Plan VTE Prophylaxis - Lovenox 40mg SQ daily Diet - regular Disposition - admit to PCU Admission and Anticipated Discharge Date Admission Date: January 16, 2023 History of Present Illness Chief Complaint: Shortness of breath, abdominal pain, fever Primary Care Provider: Keri Kaplan is a 62 year old female who presents to the ER with shortness of breath and wheezing. She reports ongoing respiratory issues with multiple courses of antibiotics and steroids for the last 3 months. She does note doing some renovations in her house earlier this year and feels the extra dust made her breathing worse but that has now settled down. Unintentionally weight loss over that time and poor appetite. She was treated with a course of steroids in November and reports initial improvement in her symptoms but at the end of the course she had a flu-like illness. On this occasion she reports 1-2 weeks of worsening chest tightness, shortness of breath, right sided intermittent abdominal pain. She denies any nausea, vomiting, change in bowel, diarrhea, melena or hematochezia. No palpitations, orthopnea, PND or claudication. No urinary symptoms. She woke up this morning feeling much more short of breath with chills and chest pain therefore decided to come to the ER. Chest pain only while coughing. On external med list it appears her maintenance asthma treatment was escalated last year from Flovent to Trelegy Ellipta for which she reports compliance but did not take any of her medications today including her inhaler. In the ER she was tachycardic, febrile with a WBC and CXR with left basilar consolidation. She was diagnosed with sepsis, PNA and asthma exacerbation. Treated with 2L NSS bolus, antibiotics with cefepime and azithromycin and asthma treatment with Dexamethasone 10mg IV and duoneb 12ml. She was referred to medicine for admission and ongoing management of pneumonia, sepsis. Allergies Allergy/AdvReac Type Severity Reaction Status Date / Time Sulfa (Sulfonamide Allergy Verified 01/16/23 08:40 Antibiotics) doxycycline AdvReac Rash Verified 01/16/23 08:40 Home Medications Medication Instructions Recorded Confirmed Type albuterol sulfate 90 mcg/actuation 1 puffs inhalation Q4H 12/26/19 01/16/23 History breath activated powder inhaler,sensor cetirizine 10 mg tablet 10 mg PO DAILY 12/26/19 01/16/23 History levothyroxine 50 mcg capsule 50 mcg PO DAILY 12/26/19 01/16/23 History montelukast 10 mg tablet 10 mg PO DAILY 12/26/19 01/16/23 History (Singulair) omeprazole 20 mg capsule,delayed 20 mg PO DAILY 12/26/19 01/16/23 History release diclofenac sodium 75 mg 75 mg PO BID 01/16/23 01/16/23 History tablet,delayed release fluticasone fur. 200 mcg-umeclid 1 inh inhalation DAILY 01/16/23 01/16/23 History 62.5 mcg-vilant 25 mcg inhalat.powder (Trelegy Ellipta) lisinopril 10 mg tablet 10 mg PO DAILY 01/16/23 01/16/23 History trazodone 150 mg tablet 150 mg PO HS 01/16/23 01/16/23 History Past Med/Surg History Medical History (Updated 01/16/23 @ 11:56 by Ramos Miner MD) Asthma GERD (gastroesophageal reflux disease) HTN (hypertension) Hypothyroidism Surgical History S/P ankle fusion S/P breast implant, silicone bilateral S/P cholecystectomy S/P hysterectomy S/P tonsillectomy Family History Other Diabetes Heart disease Hypercholesteremia Hypertension Social History Smoking Status: Never smoker Preferred Language: Welsh Feels Safe at Home: Yes Review of Systems Review of Systems: All systems reviewed & are unremarkable except as noted in HPI & below Physical Exam Constitutional: WD/WN, vitals as above Eyes: PERRL, conjunctivae normal, anicteric sclerae ENMT: external ear and nose normal, oropharynx normal Respiratory: + labored breathing, + uses accessory muscles, + cough and able to speak in complete sentences; expiratory phase not prolonged and no stridor Auscultation: + wheezes (expiratory throughout); breath sounds present, no diminished lung sounds, no crackles, no rales and no rhonchi Cardiovascular: Rate/Rhythm: regular rhythm and + tachycardic Heart Sounds: no murmur Extremities: normal capillary refill; no calf tenderness and no pedal edema Gastrointestinal (Abdomen): normal bowel sounds, soft, nontender, no hepatosplenomegaly Musculoskeletal: no cyanosis or clubbing, extremities motor strength 5/5 Skin: no rashes, warm and dry Neurologic: moves all extremities and awake; not confused Psychiatric: A+Ox3, euthymic affect Results & Data Results & Data Vital Signs (Past 12 Hours) Vital Signs Temp Pulse Pulse Resp BP Pulse Ox O2 Del Method 01/16/23 10:00 124 H 27 H 152/79 H 86 L Room Air 01/16/23 09:00 128 H 18 137/104 H 98 Room Air 01/16/23 10:02 87 L Nasal Cannula 01/16/23 09:09 38.7 C H 01/16/23 08:31 105 H 16 184/87 H 100 Nebulizer 01/16/23 08:13 106 H 25 H 153/108 H 93 Room Air 01/16/23 08:00 111 H 23 199/157 H 95 Room Air 01/16/23 08:00 39.5 C H 01/16/23 08:17 106 H 20 94 Room Air 01/16/23 08:12 95 Room Air 01/16/23 08:03 115 H 01/16/23 07:46 37.5 C 116 H 20 171/100 H 95 Room Air O2 Flow Rate 01/16/23 10:00 01/16/23 09:00 01/16/23 10:02 0 01/16/23 09:09 01/16/23 08:31 8 01/16/23 08:13 01/16/23 08:00 01/16/23 08:00 01/16/23 08:17 01/16/23 08:12 0 01/16/23 08:03 01/16/23 07:46 Laboratory Results Abnormal lab results 01/16/23 01/16/23 01/16/23 Range/Units 08:08 08:08 09:32 WBC 12.39 H (4.8-10.8) K/ul MPV 9.3 L (9.4-12.4) fL Neut # (Auto) 10.38 H (1.40-6.50) K/uL Glucose 227 H (70-99(Fasting)) mg/dl Magnesium 1.6 L (1.7-2.4) mg/dl Urine Glucose (UA) 1+ H (Negative) Urine Ketones 1+ H (Negative) Diagnostic Findings SINGLE VIEW CHEST CLINICAL HISTORY: Sepsis. FINDINGS: An AP, portable, upright chest radiograph is obtained. No prior studies are available for comparison at the time of dictation. The cardiomediastinal silhouette is unremarkable. There is airspace consolidation at the left lung base. The right lung appears clear. No large pleural effusion or pneumothorax is seen. The skeletal structures are osteopenic. The bony thorax is grossly intact. IMPRESSION: Left basilar consolidation is typical for pneumonia/aspiration pneumonitis. Clinical correlation will be required and radiographic follow-up to resolution is recommended. Medications Administered ER Medications Given: NSS bolus 1L x2 Acetaminophen 1000mg IV Duoneb 12 ml Dexamethasone 10mg IV Lorazepam 0.5mg IV Cefepime 2000mg IV ECG Rate (beats per minute): 109 Rhythm: sinus tachycardia Findings: no acute ischemic change Comparison ECG Date: no prior available Code Status & VTE Plan Code Status Full VTE Prophylaxis Plan VTE Prophylaxis will be ordered: Yes PG Care Time/CCT Total # of Minutes Spent Total Time Spent with Patient: Total time spent is greater than 50% in coordination of care (as documented) at patient's floor/unit and/or counseling patient: Coding Level of Care Code 02928 INT INP/OBS CARE 3/75MIN Diagnoses Sepsis A41.9 Acute respiratory failure with hypoxia J96.01 Asthma exacerbation J45.901 Pneumonia J18.9 Hypothyroidism E03.9 Asthma J45.909 GERD (gastroesophageal reflux disease) K21.9 Hyperglycemia R73.9 HTN (hypertension) I10
[2023-01-16] MEDS ORDERED: OPTIRAY 320 500ml IV ONE (11:17)
[2023-01-16] MEDS ORDERED: MONTELUKAST SODIUM 10 MG TABLET PO ONE (11:27)
[2023-01-16] MEDS ORDERED: CETIRIZINE HCL 10 MG TABLET PO STA ×2 (11:27→14:07)
[2023-01-16] MEDS ORDERED: FORMOTEROL 20 MCG/2 ML VIAL NEB STA (11:37)
[2023-01-16] MEDS ORDERED: BUDESONIDE 0.5 MG/2 ML VIAL (PULMICORT) NEB STA (11:37)
[2023-01-16] MEDS ORDERED: guaiFENesin 600 MG TABCR PO ONE ×2 (11:40→14:15)
[2023-01-16] MEDS ORDERED: PANTOprazole 40 MG in SYRINGE 0 ML IV ONE (11:45)
[2023-01-16 11:54] LABS: Adenovirus PCR Not Detected (NotDetected); Bordetella parapertussis PCR Not Detected (NotDetected); Bordetella pertussis PCR Not Detected (NotDetected); Chlamydia pneumoniae PCR Not Detected (NotDetected); Coronavirus 229E PCR Not Detected (NotDetected); Coronavirus CoV-2 (COVID19)PCR Not Detected (NotDetected); Coronavirus HKU1 PCR Not Detected (NotDetected); Coronavirus NL63 PCR Not Detected (NotDetected); Coronavirus OC43PCR Not Detected (NotDetected); Influenza A PCR Not Detected (NotDetected); Influenza B PCR Not Detected (NotDetected); Mycoplasma pneumoniae PCR Not Detected (NotDetected); Parainfluenza Virus 1 PCR Not Detected (NotDetected); Parainfluenza Virus 2 PCR Not Detected (NotDetected); Parainfluenza Virus 3 PCR Not Detected (NotDetected); Parainfluenza Virus 4 PCR Not Detected (NotDetected); Respiratory Syncytial VirusPCR Not Detected (NotDetected); Rhinovirus/Enterovirus PCR Not Detected (NotDetected)
[2023-01-16 12:09] LABS: Lyme Ab IgG w/WB Rflx Negative (Negative)
[2023-01-16 12:10] LABS: Lyme Ab IgM w/WB Rflx Negative (Negative)
--- NOTE | 2023-01-16 12:22 | CT Scan Report ---
CT ANGIOGRAM OF THE CHEST; CT SCAN OF THE ABDOMEN AND PELVIS WITH IV CONTRAST CLINICAL HISTORY: Atypical chest pain. Right-sided abdominal pain. Dyspnea. Sepsis. COMPARISON STUDY: Chest x-ray dated 01/16/2023. TECHNIQUE: Following the IV administration of 115 of Optiray 320, CT angiogram of the chest is perfor med from the upper abdomen to the thoracic inlet utilizing the pulmonary embolus protocol. Images are reviewed in the axial, sagittal, coronal planes. 3-D MIPS images are created and assessed. Subsequen tly, CT scan of the abdomen and pelvis was performed from the lung bases to the proximal femora. Imag es are reviewed in the axial, sagittal, and coronal planes. IV contrast was administered without comp lication. A dose lowering technique was utilized adhering to the principles of ALARA. CT DOSE: 685.78 mGy.cm FINDINGS: CHEST: Thyroid: Imaged portions of the thyroid gland are normal in size and attenuation. Thoracic aorta: The thoracic aorta is normal in caliber and demonstrates standard 3-vessel arch anato my. No dissection is seen. Pulmonary vasculature: The pulmonary trunk is normal in caliber. There are no filling defects identif ied in the main, lobar, or segmental pulmonary arteries to indicate pulmonary embolus. Heart: The heart is normal in size and without pericardial effusion. Lungs and pleural spaces: There are trace pleural effusions with dependent atelectasis. Patchy/nodula r airspace consolidation is seen in the left lower lobe and lingula. Simple appearing consolidative c hange is also seen in the left upper lobe. Diffuse peribronchial thickening is observed. The trachea and central airways are clear. Mucous plugging/debris is seen in the lower lobe airways Mediastinum: Prominent mediastinal lymph nodes are likely reactive. Cammy: Prominent left hilar nodes measure up to 9 mm in short axis. These are likely reactive. Axillae: There is no axillary lymphadenopathy. Bony thorax: The skeletal structures are osteopenic. Degenerative change is noted in the shoulders an d thoracic spine. No lytic or blastic lesions are identified. There are chronic/healed left-sided rib fractures. Soft tissues: Bilateral breast implants are in place. ABDOMEN AND PELVIS: Liver: The contrast-enhanced liver is normal in size, contour, and attenuation. There is no intrahepa tic or ductal dilatation. The hepatic veins and portal veins are patent. Gallbladder: Surgically absent noting clips in the gallbladder fossa. Spleen: Normal in size and attenuation. Pancreas: Unremarkable. Adrenal glands: Unremarkable. Kidneys: The contrast enhanced kidneys are normal in size and without hydronephrosis. The kidneys enh ance symmetrically. Abdominal vasculature: The abdominal aorta is normal in course and caliber noting mild to moderate at herosclerotic calcification. Stomach and bowel: There is a small hiatal hernia. There is mild to moderate colonic diverticulosis w ithout CT evidence of acute diverticulitis. No bowel obstruction is seen. There are tiny duodenal div erticula. The appendix is well-visualized and normal. Peritoneum: There is no intraperitoneal free air or abdominal ascites. Lymphadenopathy: None. Pelvic viscera: The bladder is normal as visualized. The uterus is surgically absent. No adnexal lesi on is seen.. Skeletal structures: The skeletal structures are osteopenic. No lytic or blastic lesions are seen. IMPRESSION: 1. There is no evidence of pulmonary embolus in the main, lobar, or segmental pulmonary arteries. 2. Patchy/nodular airspace consolidation throughout the left lung is typical for pneumonia. Clinical correlation will be required and radiographic follow-up to resolution is recommended. 3. Trace pleural effusions. 4. Diffuse peribronchial thickening suggests bronchitis/reactive airway disease. Intraluminal debris/ mucus plugging is noted in the lower lobe airways. 5. No acute infectious or inflammatory findings identified in the abdomen or pelvis. 6. Colonic diverticulosis without CT evidence of acute diverticulitis. 7. Additional findings as above. ACT 112: Negative or not required by law. Electronically signed by: Jay Jay Colin M.D. 01/16/2023 12:21 PM
[2023-01-16] MEDS ORDERED: GLUCOSE 40% GEL 15 GM TUBE PO PRN (12:36)
[2023-01-16] MEDS ORDERED: GLUCOSE 10 TAB/TUBE PO PRN (12:36)
[2023-01-16] MEDS ORDERED: ONDANSETRON INJ 2 MG/ML 2 ML VIAL IV PRN (12:36)
[2023-01-16] MEDS ORDERED: DEXTROSE 50% 50 ML SYRINGE IV PRN (12:36)
[2023-01-16] MEDS ORDERED: DEXTROMETHORPHAN POLYMR COMPLX 30 MG/5 ML UDP PO PRN (12:36)
[2023-01-16] MEDS ORDERED: CARBOHYDRATES FOR HYPOGLYCEMIA PO PRN (12:36)
[2023-01-16] MEDS ORDERED: GLUCAGON FOR INJ 1 MG VIAL SQ PRN (12:36)
--- NOTE | 2023-01-16 12:36 | Electrocardiogram Report ---
Test Reason : Blood Pressure : / mmHG Vent. Rate : 109 BPM Atrial Rate : 109 BPM P-R Int : 152 ms QRS Dur : 084 ms QT Int : 358 ms P-R-T Axes : 058 012 046 degrees QTc Int : 482 ms Sinus tachycardia Otherwise normal ECG No previous ECGs available Confirmed by Art Inman ([id number]) on 01/16/2023 12:35:53 PM Referred By: REFERRED SELF Confirmed By:Art Inman
[2023-01-16 12:48] LABS: Human Metapneumovirus PCR DETECTED (NotDetected)
[2023-01-16] MEDS ORDERED: MAGNESIUM SULFATE / D5W 1 GM/100 ML BAG IV ONE (12:59)
[2023-01-16] MEDS: INSULIN ASPART PER UNIT CHARGE SC SCH ×4 (13:32→21:11)
[2023-01-16] MEDS: ALBUT/IPRATROP 3MG/0.5MG NEB 3 ML VIAL NEB SCH ×3 (15:32→22:30)
[2023-01-16] MEDS ORDERED: PHARMACY GLYCEMIC MGMT CONSULT PRN (16:39)
[2023-01-16] MEDS ORDERED: INSULIN HUMAN REGULAR PER UNIT 8 UNITS in SYRINGE 7.92 ML IV ONE (17:00)
[2023-01-16] MEDS ORDERED: LANTUS PER UNIT CHARGE SQ ONE (17:06)
[2023-01-16] MEDS: AMPICILLIN/SULBACTAM SOD 3,000 MG in 0.9 % SODIUM CHLORIDE 100 ML IV SCH ×2 (17:50→23:13)
[2023-01-16] MEDS: BUDESONIDE 0.5 MG/2 ML VIAL (PULMICORT) NEB SCH (19:07)
[2023-01-16] MEDS: FORMOTEROL 20 MCG/2 ML VIAL NEB SCH (20:09)
[2023-01-16] MEDS ORDERED: guaiFENesin 600 MG TABCR PO SCH (21:00)
[2023-01-16] MEDS ORDERED: MONTELUKAST SODIUM 10 MG TABLET PO SCH (21:00)
[2023-01-16] MEDS: ENOXAPARIN INJ 40 MG/0.4 ML SYR SQ SCH (21:07)
[2023-01-16] MEDS: methylPREDNISolone 40 MG in SYRINGE 0 ML IV SCH (21:08)
[2023-01-16] MEDS: MONTELUKAST SODIUM 10 MG TABLET PO SCH (21:08)
[2023-01-16] MEDS: traZODone HCL 50 MG TAB PO SCH (21:08)
[2023-01-17] MEDS ORDERED: INSULIN ASPART PER UNIT CHARGE SC ONE
[2023-01-17] MEDS: ALBUT/IPRATROP 3MG/0.5MG NEB 3 ML VIAL NEB SCH ×6 (02:27→22:17)
[2023-01-17] MEDS: AMPICILLIN/SULBACTAM SOD 3,000 MG in 0.9 % SODIUM CHLORIDE 100 ML IV SCH ×3 (05:48→17:41)
[2023-01-17] MEDS: LEVOTHYROXINE SODIUM 50 MCG TABLET PO SCH (05:48)
[2023-01-17] MEDS: BUDESONIDE 0.5 MG/2 ML VIAL (PULMICORT) NEB SCH ×2 (07:22→19:12)
[2023-01-17] MEDS: FORMOTEROL 20 MCG/2 ML VIAL NEB SCH ×2 (07:22→19:12)
[2023-01-17] MEDS: INSULIN ASPART PER UNIT CHARGE SC SCH ×4 (08:05→21:28)
[2023-01-17] MEDS: CETIRIZINE HCL 10 MG TABLET PO SCH (08:48)
[2023-01-17] MEDS: guaiFENesin 600 MG TABCR PO SCH ×2 (08:48→21:30)
[2023-01-17] MEDS: PANTOprazole 40 MG TAB PO SCH (08:50)
[2023-01-17 08:51] LABS: Basophils # (auto) 0.01 K/uL (0-0.2); Basophils % (auto) 0.1 %; Hematocrit (blood only) 35.8 % (37.0-47.0); Hemoglobin 11.9 g/dl (12.0-16.0); Immature Granulocytes # (auto) 0.14 K/uL (0.01-0.20); Lymphocytes # (auto) 1.46 K/uL (1.2-3.4); Lymphocytes % (auto) 10.1 %; Mean Corpuscular Hemoglobin 28.2 pg (25.0-34.0); Mean Corpuscular Hgb Conc 33.2 g/dL (32.0-36.0); Mean Corpuscular Volume 84.8 fL (80.0-100.0); Mean Platelet Volume 9.8 fL (9.4-12.4); Monocytes # (auto) 0.32 K/uL (0.11-0.59); Monocytes % (auto) 2.2 %; Neutrophils # (auto) 12.57 K/uL (1.40-6.50); Neutrophils % (auto) 86.6 %; Platelet Count 192 K/uL (130-400); RDW Standard Deviation 43.6 fL (36.4-46.3); Red Blood Count 4.22 M/uL (4.20-5.40)
[2023-01-17] MEDS ORDERED: LANTUS PER UNIT CHARGE SQ SCH ×2 (09:00→21:00)
[2023-01-17 09:05] LABS: BUN Creatinine Ratio 19.7 (10-20); Calcium 9.4 mg/dl (8.6-10.3); Creatinine Clr Calc Pharmacy 80.8 ml/min; Est GFR (African American) 105.8 ml/min; Est GFR (Non-African American) 91.3 ml/min; Magnesium 2.3 mg/dl (1.7-2.4); Potassium 3.9 mmol/L (3.5-5.1)
[2023-01-17] MEDS: AZITHROMYCIN 500 MG in DEXTROSE 5% 250 ML IV SCH (09:50)
[2023-01-17] MEDS: methylPREDNISolone 40 MG in SYRINGE 0 ML IV SCH ×2 (09:50→21:30)
[2023-01-17] MEDS ORDERED: LANTUS PER UNIT CHARGE SQ ONE (11:45)
[2023-01-17 12:23] LABS: Estimated Average Glucose 197 mg/dl; Hemoglobin A1C 8.5 % (4.5-5.6)
--- NOTE | 2023-01-17 13:38 | Pharmacy Report ---
Pharmacy Glycemic Short Note 2 - Date of Service January 17, 2023 - Glycemic Short BSG Results (Last 24 hours): 01/16/23 01/16/23 01/16/23 16:26 16:27 19:07 Glucose POC Glucose 352 H* 368 H* 255 H 01/16/23 01/16/23 01/16/23 19:08 20:19 23:05 Glucose POC Glucose 264 H 205 H 199 H 01/17/23 01/17/23 01/17/23 07:18 07:42 11:21 Glucose 225 H POC Glucose 202 H 264 H OUTPATIENT ANTIDIABETIC REGIMEN: * n/a * A1c 8.5% ASSESSMENT: * Patient admitted with sepsis/pneumonia. Started on steroids - pharmacy consulted to help with glycemic management. A1c indicative of diabetes. Not on any medications at home for DM * Received total of 56 units of insulin yesterday, of which 20 units were basal insulin. * Fasting BSG elevated - will give 30 units of basal this AM and have scale for HS 0-10 units based upon weight/stress of 3 dosing * Lunch BSGs trending upward, likely due to ongoing steroids - will tighten CF/CR PLAN FOR INPATIENT GLYCEMIC CONTROL: * Hold outpatient oral diabetes medications * Basal insulin * Lantus 30 units Qam * Lantus 0-10 units HS * Bolus insulin * NovoLog per scale ACHS or Q6hrs while NPO * Goal Range: Low 110 mg/dL - High 140 mg/dL * Correction Factor: 15 mg/dL/unit * Nutritional / Prandial insulin per carb ratio of 1 unit per 5 grams CHO consumed
[2023-01-17] MEDS: ACETAMINOPHEN 325 MG TAB PO PRN (15:52)
[2023-01-17] MEDS ORDERED: IBUPROFEN 200 MG TAB PO STA (16:06)
--- NOTE | 2023-01-17 16:12 | Hospitalist Progress Note ---
Date of Service January 17, 2023 Assessment & Plan (1) Sepsis: Plan: Suspected source PNA as above although significant spiking fever may be more viral given only mild changes on CT Human metapneumovirus positive Recent tick found although not attached - Labs for lyme, anaplasmosis, ehrlichiosis and babesiosis sent Follow up blood and sputum cultures UA unremarkable and no symptoms suggestive of infection CT A/P negative CT negative for PE but showed patchy/nodular airspace consolidation throughout the left lung that is typical for pneumonia (2) Acute respiratory failure with hypoxia: Plan: Suspect due to asthma and PNA as below Aim O2 sats > 90% (3) Asthma exacerbation: Plan: Continue duoneb QID + q2h PRN for shortness of breath Solu-Medrol 40mg IV BID (4) Pneumonia: Plan: Cefepime/Azithromycin given in ER Will cover for CAP given CT findings of consolidation Continue Unasyn and azithromycin (5) Hypothyroidism: Plan: TSH pending Continue levothyroxine 50 mcg PO daily (6) Asthma: Plan: Asthma treatment was escalated from Flovent to Trelegy Ellipta (ICS/LAMA) in August last year. She report compliance for this but given her diagnosis of asthma and not COPD I am unclear why she was not escalated to a LABA. Recommend ICS/LABA inhaler prescribed on discharge. Continue allergy treatment with montelukast and cetirizine. Consider PFTs +/- allergy/pulmonology follow up on discharge. (7) GERD (gastroesophageal reflux disease): Plan: Switch omeprazole to pantoprazole (will give initial dose IV now) (8) Hyperglycemia: Plan: Suspect due to steroid use but no HbA1C on file, will get with AM labs Novolog: --Goal BSG Range: Low 110 mg/dL, High 140 mg/dL --Correction Factor: 45 mg/dL/unit No carb coverage --BSGs ACHS if eating, q6h if npo (9) HTN (hypertension): Plan: Hold lisinopril due to chronic cough, recommend discontinuing on discharge although possibly can be reintroduced as an outpatient once cough has resolved as most likely due to uncontrolled asthma and should improve with ICS/LABA as above. Blood pressure elevated today. Start Norvasc. Plan VTE Prophylaxis - Lovenox 40mg SQ daily Diet - regular Admission and Anticipated Discharge Date Admission Date: January 16, 2023 Subjective Patient says that she feels better overall. She is breathing better. Coughing less. Denies chest pain. Review of Systems Review of Systems: All systems reviewed & are unremarkable except as noted in Subjective Physical Exam Physical Exam: General: Awake, conversant Heart: S1, S2/regular rate and rhythm, no murmur rubs or gallops Lungs: Bilateral wheezing noted with prolonged expiration. Normal effort Abdomen: Soft/nontender/nondistended. No hepatosplenomegaly Extremities: No clubbing/cyanosis. No edema Behavior: Appropriate, cooperative Results & Data Results & Data Vital Signs (Past 12 Hours) Vital Signs Temp Pulse Pulse Pulse Resp BP Pulse Ox 01/17/23 15:22 96 H 20 94 01/17/23 15:03 36.6 C 98 H 20 175/108 H 94 01/17/23 12:00 36.9 C 70 18 152/87 H 95 01/17/23 10:52 72 18 94 01/17/23 08:00 36.6 C 76 16 124/62 97 01/17/23 07:22 80 16 94 01/17/23 07:02 90 01/17/23 04:33 36.6 C 94 H 18 132/75 91 O2 Del Method 01/17/23 15:22 Room Air 01/17/23 15:03 Room Air 01/17/23 12:00 Room Air 01/17/23 10:52 Room Air 01/17/23 08:00 Room Air 01/17/23 07:22 Room Air 01/17/23 07:02 01/17/23 04:33 Room Air Laboratory Results Abnormal lab results 01/16/23 01/16/23 01/16/23 Range/Units 16:26 16:27 19:07 WBC (4.8-10.8) K/ul Hgb (12.0-16.0) g/dl Hct (37.0-47.0) % Neut # (Auto) (1.40-6.50) K/uL Chloride (98-107) mmol/L Carbon Dioxide (21-32) mmol/L Glucose (70-99(Fasting)) mg/dl POC Glucose 352 H* 368 H* 255 H (70-99) mg/dl Hemoglobin A1c (4.5-5.6) % 0301/16/23 01/16/23 Range/Units 19:08 20:19 23:05 WBC (4.8-10.8) K/ul Hgb (12.0-16.0) g/dl Hct (37.0-47.0) % Neut # (Auto) (1.40-6.50) K/uL Chloride (98-107) mmol/L Carbon Dioxide (21-32) mmol/L Glucose (70-99(Fasting)) mg/dl POC Glucose 264 H 205 H 199 H (70-99) mg/dl Hemoglobin A1c (4.5-5.6) % 01/17/23 01/17/23 01/17/23 Range/Units 07:18 07:42 07:42 WBC 14.50 H (4.8-10.8) K/ul Hgb 11.9 L (12.0-16.0) g/dl Hct 35.8 L (37.0-47.0) % Neut # (Auto) 12.57 H (1.40-6.50) K/uL Chloride (98-107) mmol/L Carbon Dioxide (21-32) mmol/L Glucose (70-99(Fasting)) mg/dl POC Glucose 202 H (70-99) mg/dl Hemoglobin A1c 8.5 H (4.5-5.6) % 01/17/23 01/17/23 Range/Units 07:42 11:21 WBC (4.8-10.8) K/ul Hgb (12.0-16.0) g/dl Hct (37.0-47.0) % Neut # (Auto) (1.40-6.50) K/uL Chloride 108 H (98-107) mmol/L Carbon Dioxide 20 L (21-32) mmol/L Glucose 225 H (70-99(Fasting)) mg/dl POC Glucose 264 H (70-99) mg/dl Hemoglobin A1c (4.5-5.6) % PG Care Time/CCT Total # of Minutes Spent Total Time Spent with Patient: Total time spent is greater than 50% in coordination of care (as documented) at patient's floor/unit and/or counseling patient: Coding Level of Care Code 53285 SUB INP/OBS CARE 2/35MIN Diagnoses Sepsis A41.9 Sepsis acute organ dysfunction status: without acute organ dysfunction Sepsis type: sepsis due to unspecified organism Acute respiratory failure with hypoxia J96.01 Asthma exacerbation J45.21 Asthma persistence: intermittent Asthma severity: mild Pneumonia J18.9 Hypothyroidism E03.9 Asthma J45.909 GERD (gastroesophageal reflux disease) K21.9 Hyperglycemia R73.9 HTN (hypertension) I10 (1) Sepsis Sepsis acute organ dysfunction status: without acute organ dysfunction Sepsis type: sepsis due to unspecified organism Qualified Code(s): A41.9 - Sepsis, unspecified organism (3) Asthma exacerbation Asthma persistence: intermittent Asthma severity: mild Qualified Code(s): J45.21 - Mild intermittent asthma with (acute) exacerbation
[2023-01-17] MEDS: amLODIPine BESYLATE 5 MG TAB PO SCH (17:40)
[2023-01-17] MEDS: ENOXAPARIN INJ 40 MG/0.4 ML SYR SQ SCH (21:29)
[2023-01-17] MEDS: MONTELUKAST SODIUM 10 MG TABLET PO SCH (21:30)
[2023-01-17] MEDS: traZODone HCL 50 MG TAB PO SCH (21:30)
[2023-01-18] MEDS ORDERED: INSULIN ASPART PER UNIT CHARGE SC SCH
[2023-01-18] MEDS: AMPICILLIN/SULBACTAM SOD 3,000 MG in 0.9 % SODIUM CHLORIDE 100 ML IV SCH ×3 (01:20→12:05)
[2023-01-18] MEDS: ALBUT/IPRATROP 3MG/0.5MG NEB 3 ML VIAL NEB SCH ×6 (03:25→22:30)
[2023-01-18] MEDS: LEVOTHYROXINE SODIUM 50 MCG TABLET PO SCH (06:23)
[2023-01-18] MEDS: BUDESONIDE 0.5 MG/2 ML VIAL (PULMICORT) NEB SCH ×2 (07:56→19:22)
[2023-01-18] MEDS: FORMOTEROL 20 MCG/2 ML VIAL NEB SCH ×2 (07:56→19:22)
[2023-01-18] MEDS ORDERED: LANTUS PER UNIT CHARGE SQ SCH (09:00)
[2023-01-18] MEDS: amLODIPine BESYLATE 5 MG TAB PO SCH (09:05)
[2023-01-18] MEDS: guaiFENesin 600 MG TABCR PO SCH ×2 (09:06→20:43)
[2023-01-18] MEDS: INSULIN ASPART PER UNIT CHARGE SC SCH ×4 (09:07→20:42)
[2023-01-18] MEDS: methylPREDNISolone 40 MG in SYRINGE 0 ML IV SCH (09:22)
[2023-01-18] MEDS: CETIRIZINE HCL 10 MG TABLET PO SCH (09:22)
[2023-01-18] MEDS: AZITHROMYCIN 500 MG in DEXTROSE 5% 250 ML IV SCH (09:22)
[2023-01-18] MEDS: PANTOprazole 40 MG TAB PO SCH (09:22)
--- NOTE | 2023-01-18 15:46 | Hospitalist Progress Note ---
Date of Service January 18, 2023 Assessment & Plan (1) Sepsis: Plan: Suspected source PNA as above although significant spiking fever Human metapneumovirus positive Sputum culture positive for pneumococcus Recent tick found although not attached - Labs for lyme, anaplasmosis, ehrlichiosis and babesiosis sent Follow up blood and sputum culture sensitivities On ceftriaxone and azithromycin UA unremarkable and no symptoms suggestive of infection CT A/P negative CT negative for PE but showed patchy/nodular airspace consolidation throughout the left lung that is typical for pneumonia (2) Acute respiratory failure with hypoxia: Plan: Suspect due to asthma and PNA as below Aim O2 sats > 90% (3) Asthma exacerbation: Plan: Continue duoneb QID + q2h PRN for shortness of breath Switch Solu-Medrol 40 mg IV from twice daily to daily (4) Pneumonia: Plan: Will cover for CAP given CT findings of consolidation Continue azithromycin Sputum culture grew strep pneumo Switch Unasyn to ceftriaxone Follow sputum culture sensitivities (5) Hypothyroidism: Plan: TSH pending Continue levothyroxine 50 mcg PO daily (6) Asthma: Plan: Asthma treatment was escalated from Flovent to Trelegy Ellipta (ICS/LAMA) in August last year. She report compliance for this but given her diagnosis of asthma and not COPD I am unclear why she was not escalated to a LABA. Recommend ICS/LABA inhaler prescribed on discharge. Continue allergy treatment with montelukast and cetirizine. Consider PFTs +/- allergy/pulmonology follow up on discharge. (7) GERD (gastroesophageal reflux disease): Plan: Switch omeprazole to pantoprazole (will give initial dose IV now) (8) Hyperglycemia: Plan: Suspect due to steroid use but no HbA1C on file, will get with AM labs Novolog: --Goal BSG Range: Low 110 mg/dL, High 140 mg/dL --Correction Factor: 45 mg/dL/unit No carb coverage --BSGs ACHS if eating, q6h if npo (9) HTN (hypertension): Plan: Hold lisinopril due to chronic cough, recommend discontinuing on discharge although possibly can be reintroduced as an outpatient once cough has resolved as most likely due to uncontrolled asthma and should improve with ICS/LABA as above. Blood pressure better controlled on Norvasc Plan VTE Prophylaxis - Lovenox 40mg SQ daily Diet - regular Admission and Anticipated Discharge Date Admission Date: January 16, 2023 Subjective Patient feels well although she says that she is wheezing more today. She is less short of breath. No chest pain. Feeling better in a broader sense but wheezing more Review of Systems Review of Systems: All systems reviewed & are unremarkable except as noted in Subjective Physical Exam Physical Exam: General: Awake, conversant Heart: S1, S2/regular rate and rhythm, no murmur rubs or gallops Lungs: Bilateral wheezing noted with prolonged expiration. Normal effort Abdomen: Soft/nontender/nondistended. No hepatosplenomegaly Extremities: No clubbing/cyanosis. No edema Behavior: Appropriate, cooperative Results & Data Results & Data Vital Signs (Past 12 Hours) Vital Signs Temp Pulse Pulse Resp BP Pulse Ox O2 Del Method 01/18/23 15:29 93 H 01/18/23 15:21 89 18 93 Room Air 01/18/23 12:15 80 24 94 Room Air 01/18/23 11:23 36.9 C 81 131/82 94 Room Air 01/18/23 09:00 Room Air 01/18/23 08:01 36.6 C 83 18 125/76 96 Room Air 01/18/23 07:57 84 18 95 Room Air 01/18/23 07:36 75 01/18/23 04:34 36.7 C 88 16 115/68 91 Room Air Laboratory Results Abnormal lab results 01/17/23 01/17/23 01/18/23 Range/Units 16:32 20:58 01:13 POC Glucose 219 H 263 H 180 H (70-99) mg/dl 01/18/23 01/18/23 Range/Units 07:28 11:20 POC Glucose 154 H 170 H (70-99) mg/dl PG Care Time/CCT Total # of Minutes Spent Total Time Spent with Patient: Total time spent is greater than 50% in coordination of care (as documented) at patient's floor/unit and/or counseling patient: Coding Level of Care Code 67063 SUB INP/OBS CARE 2/35MIN Diagnoses Sepsis A41.9 Sepsis acute organ dysfunction status: without acute organ dysfunction Sepsis type: sepsis due to unspecified organism Acute respiratory failure with hypoxia J96.01 Asthma exacerbation J45.21 Asthma persistence: intermittent Asthma severity: mild Pneumonia J18.9 Hypothyroidism E03.9 Asthma J45.909 GERD (gastroesophageal reflux disease) K21.9 Hyperglycemia R73.9 HTN (hypertension) I10 (1) Sepsis Sepsis acute organ dysfunction status: without acute organ dysfunction Sepsis type: sepsis due to unspecified organism Qualified Code(s): A41.9 - Sepsis, unspecified organism (3) Asthma exacerbation Asthma persistence: intermittent Asthma severity: mild Qualified Code(s): J45.21 - Mild intermittent asthma with (acute) exacerbation
[2023-01-18] MEDS: cefTRIAXone SODIUM 2,000 MG in DEXTROSE 5% 50 ML IV SCH (18:03)
[2023-01-18] MEDS: ENOXAPARIN INJ 40 MG/0.4 ML SYR SQ SCH (20:43)
[2023-01-18] MEDS: traZODone HCL 50 MG TAB PO SCH (20:44)
[2023-01-18] MEDS: MONTELUKAST SODIUM 10 MG TABLET PO SCH (20:44)
[2023-01-18] MEDS: LANTUS PER UNIT CHARGE SQ SCH (20:48)
[2023-01-19] MEDS: ALBUT/IPRATROP 3MG/0.5MG NEB 3 ML VIAL NEB SCH ×6 (03:36→23:09)
[2023-01-19] MEDS: LEVOTHYROXINE SODIUM 50 MCG TABLET PO SCH (05:45)
[2023-01-19] MEDS: BUDESONIDE 0.5 MG/2 ML VIAL (PULMICORT) NEB SCH ×2 (07:17→19:21)
[2023-01-19] MEDS: FORMOTEROL 20 MCG/2 ML VIAL NEB SCH ×2 (07:17→19:21)
[2023-01-19] MEDS ORDERED: LANTUS PER UNIT CHARGE SQ ONE (07:58)
[2023-01-19] MEDS ORDERED: INSULIN ASPART PER UNIT CHARGE SC ONE (07:58)
[2023-01-19] MEDS: INSULIN ASPART PER UNIT CHARGE SC SCH ×4 (08:13→20:52)
[2023-01-19 08:38] LABS: Creatinine Clr Calc Pharmacy 65.9 ml/min; Est GFR (African American) 82.8 ml/min; Est GFR (Non-African American) 71.4 ml/min
[2023-01-19] MEDS: CETIRIZINE HCL 10 MG TABLET PO SCH (08:42)
[2023-01-19] MEDS: guaiFENesin 600 MG TABCR PO SCH ×2 (08:42→20:52)
[2023-01-19] MEDS: methylPREDNISolone 40 MG in SYRINGE 0 ML IV SCH (08:42)
[2023-01-19] MEDS: amLODIPine BESYLATE 5 MG TAB PO SCH (08:43)
[2023-01-19] MEDS: PANTOprazole 40 MG TAB PO SCH (08:43)
[2023-01-19] MEDS ORDERED: LANTUS PER UNIT CHARGE SQ SCH ×2 (09:00)
--- NOTE | 2023-01-19 10:10 | Pharmacy Report ---
Pharmacy Glycemic Short Note 2 - Date of Service January 19, 2023 - Glycemic Short BSG Results (Last 24 hours): 01/18/23 01/18/23 01/18/23 11:20 16:09 20:13 POC Glucose 170 H 199 H 198 H 01/19/23 07:23 POC Glucose 105 H OUTPATIENT ANTIDIABETIC REGIMEN: * n/a * A1c 8.5% ASSESSMENT: 01/19/23: * BSGs were fairly well-controlled yesterday, with 30 units of basal insulin and 36 units of prandial/correctional insulin. * Steroids have been tapered (SoluMedrol 40mg IV BID --> daily). Expect insulin requirements to decrease as steroids are reduced. * Fasting BSG trending down, so Lantus dose reduced this morning. * Novolog parameters tightened slightly this morning to provide additional carb coverage, d/t BSG trends yesterday. Anticipate that this will need to be loosened up again once steroids are discontinued. * Will continue to follow and adjust regimen as indicated. 01/17 * Patient admitted with sepsis/pneumonia. Started on steroids - pharmacy consulted to help with glycemic management. A1c indicative of diabetes. Not on any medications at home for DM * Received total of 56 units of insulin yesterday, of which 20 units were basal insulin. * Fasting BSG elevated - will give 30 units of basal this AM and have scale for HS 0-10 units based upon weight/stress of 3 dosing * Lunch BSGs trending upward, likely due to ongoing steroids - will tighten CF/CR PLAN FOR INPATIENT GLYCEMIC CONTROL: * Basal insulin * Lantus 20 units SQ qAM * additional Lantus 10 units SQ qHS if BSG is greater than 200mg/dL * Bolus insulin * NovoLog per scale ACHS or Q6hrs while NPO * Goal Range: Low 110 mg/dL - High 140 mg/dL * Correction Factor: 15 mg/dL/unit * Nutritional / Prandial insulin per carb ratio of 1 unit per 4 grams CHO consumed
[2023-01-19 11:03] LABS: Potassium 3.4 mmol/L (3.5-5.1)
[2023-01-19 11:04] LABS: BUN Creatinine Ratio 27.9 (10-20); Calcium 8.9 mg/dl (8.6-10.3); Creatinine Clr Calc Pharmacy 66.7 ml/min; Est GFR (African American) 83.9 ml/min; Est GFR (Non-African American) 72.4 ml/min
[2023-01-19] MEDS: cefTRIAXone SODIUM 2,000 MG in DEXTROSE 5% 50 ML IV SCH (17:13)
--- NOTE | 2023-01-19 20:44 | Hospitalist Progress Note ---
Date of Service January 19, 2023 Assessment & Plan (1) Sepsis: Plan: 2nd to LLL pneumonia Sputum culture with streptococcus pneumoniae - likely culprit pathogen sepsis resolved Recent tick found although not attached - Labs for lyme, anaplasmosis, ehrlichiosis and babesiosis sent; lyme/anaplasmosis negative; other tests pending blood cx's negative remains on rocephin day #4 of abx (2) Acute respiratory failure with hypoxia: Plan: 2nd asthma flare and pneumonia O2 sats wnl (3) Asthma exacerbation: Plan: cont solumedrol 1 more day, then prednisone taper at d/c will advise pulmonary referral for her asthma has not had PFTs in many years send home on ICS/LABA combo inhaler (4) Pneumonia: Plan: Initially on IV Unasyn Changed to ceftriaxone 01/18 day #4 of IV abx therapy Sputum cx with strep pneumo - await final sens clinically resolving (5) Hypothyroidism: Plan: TSH 1.4 Continue levothyroxine 50 mcg PO daily (6) GERD (gastroesophageal reflux disease): Plan: cont PPI (7) Hyperglycemia: Plan: dx of T2DM with a1c >8% appreciate DM educator consultation metformin at d/c ? cont insulins while here for optimal control (8) HTN (hypertension): Plan: controlled on CCB DANISH has been held due to chronic cough? Plan VTE Prophylaxis - Lovenox 40mg SQ daily d/c home tomorrow walk in hallway tomorrow to ensure stable O2 sats Admission and Anticipated Discharge Date Admission Date: January 16, 2023 Subjective tele overnight wnl feels much better still with cough and minimal dyspnea but overall feels good eating well wheezing better no new issues we discussed human metapneumovirus and gave her a handout on such Review of Systems Review of Systems: gen - no fevers cv - no chest pain pulm - all symptoms improved GI - no N/V Physical Exam Physical Exam: gen - NAD, looks good neck - no JVD mouth - MMM heart - RRR, s1 s2 lungs - mild end-exp wheezes b/l; minimal rales L base abd - soft NT ND BS+ ext - no edema, pulses 2+ b/l Results & Data Results & Data Vital Signs (Past 12 Hours) Vital Signs Temp Pulse Pulse Resp BP Pulse Ox O2 Del Method 01/19/23 19:48 36.8 C 88 18 137/84 94 Room Air 01/19/23 19:21 93 H 18 95 Room Air 01/19/23 16:20 36.8 C 96 H 18 149/81 H 92 Room Air 01/19/23 16:46 99 H 01/19/23 14:55 96 H 18 94 Room Air 01/19/23 13:30 36.8 C 92 H 18 147/79 H 94 Room Air 01/19/23 10:55 76 01/19/23 10:21 Room Air 01/19/23 10:22 79 18 95 Room Air 01/19/23 08:52 74 20 94 Room Air Laboratory Results Laboratory Results - last 24 hr 01/19/23 01/19/23 01/19/23 09:12 11:20 16:23 Sodium 140 Potassium 3.4 L Chloride 110 H Carbon Dioxide 21 Anion Gap 9 BUN 24 H Creatinine 0.86 Est Cr Clr Drug Dosing 66.7 Est GFR ( Amer) 83.9 Est GFR (Non-Af Amer) 72.4 BUN/Creatinine Ratio 27.9 H Glucose 132 H POC Glucose 192 H 205 H Calcium 8.9 PG Care Time/CCT Total # of Minutes Spent Total Time Spent with Patient: Total time spent is greater than 50% in coordination of care (as documented) at patient's floor/unit and/or counseling patient: Coding Level of Care Code 59084 SUB INP/OBS CARE 2/35MIN Diagnoses Sepsis A41.9 Sepsis acute organ dysfunction status: without acute organ dysfunction Sepsis type: sepsis due to unspecified organism Acute respiratory failure with hypoxia J96.01 Asthma exacerbation J45.21 Asthma persistence: intermittent Asthma severity: mild Pneumonia J18.9 Hypothyroidism E03.9 GERD (gastroesophageal reflux disease) K21.9 Hyperglycemia R73.9 HTN (hypertension) I10 (1) Sepsis Sepsis acute organ dysfunction status: without acute organ dysfunction Sepsis type: sepsis due to unspecified organism Qualified Code(s): A41.9 - Sepsis, unspecified organism (3) Asthma exacerbation Asthma persistence: intermittent Asthma severity: mild Qualified Code(s): J45.21 - Mild intermittent asthma with (acute) exacerbation
[2023-01-19] MEDS: LANTUS PER UNIT CHARGE SQ SCH (20:47)
[2023-01-19] MEDS: ENOXAPARIN INJ 40 MG/0.4 ML SYR SQ SCH (20:51)
[2023-01-19] MEDS: MONTELUKAST SODIUM 10 MG TABLET PO SCH (20:53)
[2023-01-19] MEDS: traZODone HCL 50 MG TAB PO SCH (20:53)
[2023-01-20] MEDS: ALBUT/IPRATROP 3MG/0.5MG NEB 3 ML VIAL NEB SCH ×3 (03:48→11:05)
[2023-01-20] MEDS: LEVOTHYROXINE SODIUM 50 MCG TABLET PO SCH (06:07)
[2023-01-20] MEDS: FORMOTEROL 20 MCG/2 ML VIAL NEB SCH (06:55)
[2023-01-20] MEDS: BUDESONIDE 0.5 MG/2 ML VIAL (PULMICORT) NEB SCH (06:55)
[2023-01-20 07:01] LABS: BUN Creatinine Ratio 26.4 (10-20); Creatinine Clr Calc Pharmacy 63.2 ml/min; Est GFR (African American) 78.4 ml/min; Est GFR (Non-African American) 67.6 ml/min; Potassium 3.8 mmol/L (3.5-5.1)
[2023-01-20] MEDS: INSULIN ASPART PER UNIT CHARGE SC SCH ×2 (08:49→12:51)
[2023-01-20] MEDS ORDERED: INSULIN HUMAN NPH SC SCH (09:00)
[2023-01-20] MEDS: amLODIPine BESYLATE 5 MG TAB PO SCH (09:09)
[2023-01-20] MEDS: CETIRIZINE HCL 10 MG TABLET PO SCH (09:10)
[2023-01-20] MEDS: PANTOprazole 40 MG TAB PO SCH (09:10)
[2023-01-20] MEDS: guaiFENesin 600 MG TABCR PO SCH (09:10)
[2023-01-20] MEDS: methylPREDNISolone 40 MG in SYRINGE 0 ML IV SCH (09:10)
--- NOTE | 2023-01-20 13:50 | Pharmacy Report ---
Pharmacy Glycemic Short Note 2 - Date of Service January 20, 2023 - Glycemic Short BSG Results (Last 24 hours): 01/19/23 01/19/23 01/20/23 16:23 20:18 06:07 Glucose 115 H POC Glucose 205 H 127 H 01/20/23 01/20/23 07:23 11:07 Glucose POC Glucose 91 124 H OUTPATIENT ANTIDIABETIC REGIMEN: * None * HbA1c: 8.5% (01/17/23) ASSESSMENT: 01/20: * Sammi received 48 units of insulin yesterday, 20 units basal + 28 units bolus. BSGs were: [phone] mg/dL. * Fasting BSG was below goal at 91 mg/dL this AM. * Continues on Solu-Medrol 40 mg IV once daily. * Given postprandial hyperglycemia seen over the last 48 hours which is likely due to steroids, decided to change basal insulin to NPH to more closely resemble the pharmacokinetics of Solu-Medrol. * No change to bolus regimen today. 01/19: * BSGs were fairly well-controlled yesterday, with 30 units of basal insulin and 36 units of prandial/correctional insulin. * Steroids have been tapered (SoluMedrol 40mg IV BID --> daily). Expect insulin requirements to decrease as steroids are reduced. * Fasting BSG trending down, so Lantus dose reduced this morning. * Novolog parameters tightened slightly this morning to provide additional carb coverage, d/t BSG trends yesterday. Anticipate that this will need to be loosened up again once steroids are discontinued. * Will continue to follow and adjust regimen as indicated. 01/17 * Patient admitted with sepsis/pneumonia. Started on steroids - pharmacy consulted to help with glycemic management. A1c indicative of diabetes. Not on any medications at home for DM * Received total of 56 units of insulin yesterday, of which 20 units were basal insulin. * Fasting BSG elevated - will give 30 units of basal this AM and have scale for HS 0-10 units based upon weight/stress of 3 dosing * Lunch BSGs trending upward, likely due to ongoing steroids - will tighten CF/CR PLAN FOR INPATIENT GLYCEMIC CONTROL: * Basal insulin * NPH 20 units SC AM (give with steroids - call pharmacy at [phone] if steroids held/discontinued) * Bolus insulin * NovoLog per scale ACHS or Q6hrs while NPO * Goal Range: Low 110 mg/dL - High 140 mg/dL * Correction Factor: 15 mg/dL/unit * Nutritional / Prandial insulin per carb ratio of 1 unit per 4 grams CHO consumed
[2023-01-20] MEDS: ACETAMINOPHEN 325 MG TAB PO PRN (13:58)
--- NOTE | 2023-01-20 14:23 | Discharge Summary ---
Date of Service January 20, 2023 Admission HPI Per Admitting Provider Sammi Kaplan is a 62 year old female who presents to the ER with shortness of breath and wheezing. She reports ongoing respiratory issues with multiple courses of antibiotics and steroids for the last 3 months. She does note doing some renovations in her house earlier this year and feels the extra dust made her breathing worse but that has now settled down. Unintentionally weight loss over that time and poor appetite. She was treated with a course of steroids in November and reports initial improvement in her symptoms but at the end of the course she had a flu-like illness. On this occasion she reports 1-2 weeks of worsening chest tightness, shortness of breath, right sided intermittent abdominal pain. She denies any nausea, vomiting, change in bowel, diarrhea, melena or hematochezia. No palpitations, orthopnea, PND or claudication. No urinary symptoms. She woke up this morning feeling much more short of breath with chills and chest pain therefore decided to come to the ER. Chest pain only while coughing. On external med list it appears her maintenance asthma treatment was escalated last year from Flovent to Trelegy Ellipta for which she reports compliance but did not take any of her medications today including her inhaler. In the ER she was tachycardic, febrile with a WBC and CXR with left basilar consolidation. She was diagnosed with sepsis, PNA and asthma exacerbation. Treated with 2L NSS bolus, antibiotics with cefepime and azithromycin and asthma treatment with Dexamethasone 10mg IV and duoneb 12ml. She was referred to medicine for admission and ongoing management of pneumonia, sepsis. Discharge Exam gen - NAD, looks good neck - no JVD mouth - MMM heart - RRR, s1 s2 lungs - mild end-exp wheezes b/l; minimal rales L base abd - soft NT ND BS+ ext - no edema, pulses 2+ b/l Discharge Data Allergies Allergy/AdvReac Type Severity Reaction Status Date / Time Sulfa (Sulfonamide Allergy Verified 01/16/23 08:40 Antibiotics) doxycycline AdvReac Rash Verified 01/16/23 08:40 Consultations 01/16/23 10:19 ED Decision to Admit Stat Ordered Studies 01/16/23 10:32 CT for pulmonary embolism PE [CT angio chest PE protocol] Stat 01/16/23 10:37 CT abd pelvis IV con only Stat Hospital Course (1) Sepsis: 2nd to LLL pneumonia Sputum culture with streptococcus pneumoniae - likely culprit pathogen sepsis resolved Recent tick found although not attached - Labs for lyme, anaplasmosis, ehrlichiosis and babesiosis sent; lyme/anaplasmosis negative; other tests pending blood cx's negative remains on rocephin day #4 of abx (2) Acute respiratory failure with hypoxia: 2nd asthma flare and pneumonia O2 sats wnl (3) Asthma exacerbation: cont solumedrol 1 more day, then prednisone taper at d/c will advise pulmonary referral for her asthma has not had PFTs in many years send home on ICS/LABA combo inhaler (4) Pneumonia: Initially on IV Unasyn Changed to ceftriaxone 01/18 day #4 of IV abx therapy Sputum cx with strep pneumo - await final sens clinically resolving (5) Hypothyroidism: TSH 1.4 Continue levothyroxine 50 mcg PO daily (6) GERD (gastroesophageal reflux disease): cont PPI (7) Hyperglycemia: dx of T2DM with a1c >8% appreciate DM educator consultation metformin at d/c ? cont insulins while here for optimal control (8) HTN (hypertension): controlled on CCB DANISH has been held due to chronic cough? Plan VTE Prophylaxis - Lovenox 40mg SQ daily d/c home tomorrow walk in hallway tomorrow to ensure stable O2 sats Discharge Plan Discharge Items Patient Disposition: Home - Self-Care Reason For Visit: SEPSIS Discharge Diagnosis: 1. sepsis due to left-sided pneumonia (likely due to #2 and #3 combined) 2. human metapneumovirus infection 3. strep bacterial infection of the left lung 4. asthma exacerbation 5. type 2 diabetes with hemoglobin a1c of 8.5% Activity: As commented below Activity Comment: gradually increase your activities over the next 7-10 days Exercise/Sports: Wait until after follow-up appointment Non-emergency contact: Primary Care Provider and Professor Of Exercise Science Call non-emergency contact if: you have any medication questions, your symptoms worsen and you have a fever Follow-up/Referrals: Sean Douglass MD [Physician] - 02/04/23 8:45 am () Keri Lou PA-C [Primary Care Provider] - 02/01/23 10:30 am Diet: Carb Consistent or DM2 Addtl Attending Provider Instructions: Mrs Kaplan, You were hospitalized for sepsis (this is a term to describe any infection that causes your body to be systemically sick) due to pneumonia. Your pneumonia was likely due to a combination of a virus (human metapneumovirus was detected on testing) as well as streptococcal bacteria (this grew on your sputum culture). The CT scan of your lungs showed pneumonia in the left lung as well as signs of inflammation from your asthma in your bronchiole tubes. You improved with IV steroids, IV antibiotics, nebulizer treatments, and time. We walked you in the hallway on the day of discharge and your oxygen levels st ayed in normal range (you do not need oxygen at home). We also saw that your blood sugars were running high. A hemoglobin a1c test (see handout) was run and returned high at 8.5%. This level is well in the diabetic range. The clinical educator saw you in consult and provided teaching about your type 2 diabetes. Please know that you likely have another week or two of recovery ahead from your pneumonia. Be sure to take it easy and rest as needed. Recommendations - 1. For pneumonia - * take amoxicillin-clavulanate 875mg twice daily x 3 days, first dose tonight with your evening meal; this is your antibiotic * this medication can cause diarrhea * eat extra yogurt daily over the next week, and you can consider taking an hndo-tyu-tcaduta probiotic as well 2. For asthma - * STOP Trelegy inhaler * START Breo inhaler 1 puff every day; start this tomorrow, 01/21/23; rinse your mouth with water after each use * prednisone course - start 01/21/23; it is an 8 day taper; take with food * I provided a refill on your albuterol nebulizer treatments; you can take 1 treatment every 6 hours as needed for cough/wheeze/shortness of breath over the next few days as you recover from your illness * continue to use your flutter valve for a few more days * we have set you up with a lung doctor at [facility] to see you for the asthma 3. For diabetes - * check your blood sugar every morning before breakfast * for the next couple of weeks also check 1 other time during the day (some days do before supper, some days do before bedtime, and so forth) * checking the sugar twice a day allows you to see what your blood sugar levels are doing at various times * glucometer supplies sent to your pharmacy for you * TAKE metformin extended release - 500mg twice daily with meals * this medication can sometimes cause stomach upset * this medication can also sometimes cause loose stool * you may lose weight from this medication * know that the prednisone course WILL RAISE YOUR BLOOD SUGARS over the next week or so 4. For high blood pressure - * STOP lisinopril * START in its place -- amlodipine 10mg once daily each morning, first dose on 01/21/23 5. While taking your prednisone course please HOLD your diclofenac to avoid stomach upset and stomach irritation. You can resume diclofenac after the prednisone course is complete. Follow-up - see separate section Return to [facility] if - * you have fevers over 100 degrees * you have severe diarrhea * you have worsening wheezing or shortness of breath * you have chest pains * any other concerns It was our pleasure to care for you! -Dr Grant Pending Studies at Discharge: Yes Studies:: final sputum culture (currently growing streptococcal pneumoniae) Stand-Alone Forms: My [facility], Smoking Cessation Medications and DC Order Prescriptions: New metformin 500 mg tablet extended release 24hr 500 mg PO BIDM Qty: 60 2RF Rx Instructions: take with breakfast as well as evening meal. albuterol sulfate 2.5 mg /3 mL (0.083 %) solution for nebulization 2.5 mg inhalation Q6H PRN (Reason: cough/wheeze/shortness of breath) Qty: 90 0RF (DME) OneTouch Verio test strips Strip See Rx Instructions .Route Qty: 100 1RF Rx Instructions: check sugars at least 1x/day (DME) lancets [OneTouch Delica Lancets] 33 gauge misc See Rx Instructions .Route Qty: 100 1RF Rx Instructions: check sugars at least 1x/day amoxicillin-pot clavulanate 875-125 mg tablet 1 tab PO BID Qty: 6 0RF Rx Instructions: first dose evening of 01/20/23. prednisone 10 mg tablet 10 mg PO DIRECTED Qty: 20 0RF Rx Instructions: start 01/21/23: 4 tabs daily x 2 days; 3 tabs daily x 2 days; 2 tabs daily x 2 days; 1 tab daily x 2 days. Take w/ food. fluticasone furoate-vilanterol [Breo Ellipta] 100-25 mcg/dose blister with device 1 inh inhalation DAILY Qty: 60 1RF Rx Instructions: rinse mouth with water after each use. amlodipine 10 mg tablet 10 mg PO DAILY Qty: 30 2RF Rx Instructions: for high blood pressure Continued montelukast [Singulair] 10 mg tablet 10 mg PO DAILY cetirizine 10 mg tablet 10 mg PO DAILY levothyroxine 50 mcg capsule 50 mcg PO DAILY omeprazole 20 mg capsule,delayed release(DR/EC) 20 mg PO DAILY trazodone 150 mg tablet 150 mg PO HS Changed albuterol sulfate 90 mcg/actuation aero powdr breath act w/sensor 2 puffs INH Q4H PRN (Reason: cough/wheeze/shortness of breath) Qty: 1 0RF Discontinued Trelegy Ellipta 200-62.5-25 mcg blister with device 1 inh INHALATION DAILY lisinopril 10 mg tablet 10 mg PO DAILY diclofenac sodium 75 mg tablet,delayed release (DR/EC) 75 mg PO BID Discharge Orders: Discharge Order (Routine); Ordered 01/20/23 Ordered By: Ramos Silva/Other Patient Handouts: Asthma Triggers Allergens, Managing Diabetes: The A1C Test, Diabetes: Meal Planning, Type 2 Diabetes, Asthma Admission Data Admit Date/Time: 01/16/23 11:16 Attending Provider: Ramos Grant Admit Provider: Ramos Miner Primary Care Provider: Keri Lou Other Providers: Ramos Miner Other Interventions: Discharge Summary Assessment (RN) Last Done: 01/20/23 14:20 Coding Diagnoses Sepsis A41.9 Sepsis acute organ dysfunction status: without acute organ dysfunction Sepsis type: sepsis due to unspecified organism Acute respiratory failure with hypoxia J96.01 Asthma exacerbation J45.21 Asthma persistence: intermittent Asthma severity: mild Pneumonia J18.9 Hypothyroidism E03.9 GERD (gastroesophageal reflux disease) K21.9 Hyperglycemia R73.9 HTN (hypertension) I10
[2023-01-20 18:43] LABS: Babesia microti DNA Not Detected (Not Detected)
[2023-01-21 01:06] LABS: Ehrlichia chaff DNA Bld Negative (Negative)
== END 2023-01-20 14:37 | disposition home or self-care (01) | DRG 871 ==
LOC: ED 07:45 → SUATTDRO 11:16 → 2S 11:16
DX: I10 Essential (primary) hypertension; Z83.3 Family history of diabetes mellitus; A40.3 Sepsis due to Streptococcus pneumoniae; E03.9 Hypothyroidism, unspecified; J45.901 Unspecified asthma with (acute) exacerbation; Z82.49 Family history of ischemic heart disease and other diseases of the circulatory system; E11.65 Type 2 diabetes mellitus with hyperglycemia; Z88.1 Allergy status to other antibiotic agents; Z79.51 Long term (current) use of inhaled steroids; J12.3 Human metapneumovirus pneumonia; Z88.2 Allergy status to sulfonamides; K21.9 Gastro-esophageal reflux disease without esophagitis; J96.01 Acute respiratory failure with hypoxia; Z20.89 Contact with and (suspected) exposure to other communicable diseases; A41.89 Other specified sepsis; Z79.899 Other long term (current) drug therapy; J13 Pneumonia due to Streptococcus pneumoniae; Z79.890 Hormone replacement therapy

== ENCOUNTER 2023-06-30 14:13 | Inpatient (IN) ==
--- NOTE | 2023-06-30 14:25 | ED Triage Note ---
Date of Service June 30, 2023 History of Present Illness This patient was briefly evaluated while in triage. An abbreviated physical exam was performed. This patient is a 63-year-old Female who presents to the ED for evaluation of low back pain. Here 3 weeks ago for similar symptoms. Patient states her pain is located in low back and radiates into abdomen. She notes abdominal cramping and nausea. Denies fever/chills, vomiting, chest pain, SOB, diarrhea/constipation, urinary symptoms. Denies falls or trauma. Denies bowel/bladder incontinence. Physical Exam Constitutional: alert and oriented x3. no acute distress. HEENT: normocephalic, atraumatic. normal conjunctiva.PERRLA. EOM's grossly intact. Respiratory: lungs are clear to auscultation without wheezes, rhonchi, or rales bilaterally. equal chest rise. normal respiratory effort, no accessory muscle use. Cardiovascular: normal heart sounds without murmur. regular rate and rhythm. GI: abdomen is soft. No rebound tenderness or guarding. MSK: moves all 4 extremities spontaneously Psych:appropriate mood and affect. Initial orders for labs and / or imaging were placed and patient was placed in the waiting area until a bed is available. Please see further documentation for the full ED course.
[2023-06-30 15:36] LABS: Basophils # (auto) 0.04 K/uL (0.00-0.20); Basophils % (auto) 0.6 %; Eosinophils # (auto) 0.17 K/uL (0.00-0.50); Eosinophils % (auto) 2.5 %; Hematocrit (blood only) 43.2 % (37.0-47.0); Hemoglobin 14.2 g/dl (12.0-16.0); Immature Granulocytes # (auto) 0.01 K/uL (0.01-0.20); Immature Granulocytes % (auto) 0.1 %; Lymphocytes # (auto) 2.05 K/uL (1.20-3.40); Lymphocytes % (auto) 30.4 %; Mean Corpuscular Hemoglobin 27.3 pg (25.0-34.0); Mean Corpuscular Hgb Conc 32.9 g/dL (32.0-36.0); Mean Corpuscular Volume 83.1 fL (80.0-100.0); Monocytes # (auto) 0.38 K/uL (0.11-0.59); Monocytes % (auto) 5.6 %; Neutrophils % (auto) 60.8 %; Platelet Count 240 K/uL (130-400); RDW Coefficient of Variation 15.2 % (11.5-14.5); RDW Standard Deviation 45.8 fL (36.4-46.3); White Blood Count 6.75 K/ul (4.8-10.8)
[2023-06-30 15:57] LABS: Albumin Globulin Ratio 1.6 (0.9-2); Albumin Level 5.2 gm/dl (3.4-5.0); BUN Creatinine Ratio 12.9 (10-20); Calcium 10.9 mg/dl (8.6-10.3); Creatinine Clr Calc Pharmacy 64.2 ml/min; Est GFR (African American) 84.5 ml/min; Est GFR (Non-African American) 72.9 ml/min; Globulin 3.3 gm/dl (2.5-4.0); Potassium 4.1 mmol/L (3.5-5.1); Total Protein 8.5 gm/dl (6.0-8.3)
[2023-06-30] MEDS ORDERED: OPTIRAY 320 100ml IV ONE (16:53)
--- NOTE | 2023-06-30 17:53 | CT Scan Report ---
CT abd pelvis IV con only, CT lumbar spine w con CLINICAL HISTORY: abd pain TECHNIQUE: Helical axial images of the abdomen and pelvis were obtained and displayed. Automated dose lowering techniques and/or adjustment according to patient size were utilized for this exam. Dedicat ed images of the lumbar spine were obtained. This exam was performed with intravenous contrast. CT DOSE: 1142.78 mGy.cm COMPARISON: Comparison is made to CT head and pelvis 06/09/2023 FINDINGS: Lower chest: Bibasilar atelectasis versus scarring is seen. Liver: Unremarkable. No focal lesions are seen. Gallbladder and biliary tree: Patient is status post cholecystectomy. No intra- or extrahepatic bilia ry ductal dilation. Pancreas: Unremarkable, no focal lesions. Spleen: Splenule is incidentally noted. Adrenals: Unremarkable. Kidneys and ureters: Unremarkable. Bladder: Limited evaluation due to underdistention. Reproductive organs: Patient is status post hysterectomy. Bowel: Diverticulosis is seen without diverticulitis. The appendix is normal. Lymph nodes Retroperitoneal: Unremarkable. Pelvic: Unremarkable. Mesenteric: Unremarkable. Peritoneum: Normal. Vessels: Atherosclerotic calcifications are seen. Abdominal wall: Unremarkable. Bones: Degenerative changes in the visualized spine. IMPRESSION: No acute abnormalities to explain abdominal pain. Diverticulosis is seen without evidence of divertic ulitis. ACT 112: Negative or not required by law. Electronically signed by: Stan Conklin M.D. 06/30/2023 5:51 PM
[2023-06-30] MEDS ORDERED: ACETAMINOPHEN 1,000 MG/100 ML VIAL IV STA (18:05)
[2023-06-30] MEDS ORDERED: MoRPHine SULFATE 4 MG/ML 1 ML CARP\\VIAL IV STA ×2 (18:05→19:53)
[2023-06-30] MEDS ORDERED: SODIUM CHLORIDE 0.9% 1,000 ML IV ONE ×2 (18:05→20:50)
[2023-06-30] MEDS ORDERED: ONDANSETRON INJ 2 MG/ML 2 ML VIAL IV STA (18:07)
--- NOTE | 2023-06-30 18:18 | Emergency Department Note ---
Impression & Plan Abdominal pain, Back pain, Nausea ED Provider Note ED Provider Note NAME: MACKENZIE MALIK AGE:63 SEX: Female : 1960 ARRIVES VIA: Private vehicle INFORMANT: Patient ED PROVIDER(s): Cheri Ornelas DO CHIEF COMPLAINT: Abdominal pain HPI: This is a 63-year-old female presents emergency room due to persistent ab dominal pain. Patient states symptoms first began 3 weeks ago and were mild at that time. She states they have become more constant and more severe in recent days. She states she was seen here 2 weeks ago and underwent evaluation and was told she may have mild diverticulitis. She states she has since completed 2 courses of antibiotics without any improvement. She denies any prior history of IBS or IBD. She has has had other prior abdominal surgeries. No recent change in diet or medications. Patient states she does get chilled occasionally however denies fevers. She states she had persistent nausea and decreased oral intake however no vomiting. She states she has had mildly loose stools, no melena or hematochezia. No change in urine. No recent trauma or change in activity. Patient has had prior EGD. Orders placed per protocol from triage prior to my evaluation. PAST MEDICAL HISTORY:See Below PAST SURGICAL HISTORY:See Below FAMILY HISTORY:See Below SOCIAL HISTORY:See Below HOME MEDICATIONS:See Below ALLERGIES:See Below VITALS:See Below PHYSICAL EXAMINATION: GENERAL: alert, tearful and uncomfortable appearing, well nourished, moderate distress, non-toxic EYE EXAM: normal conjunctiva, PERRL and EOM's grossly intact OROPHARYNX: no exudate, no erythema, lips, buccal mucosa, and tongue normal and mucous membranes are moist NECK: supple, no nuchal rigidity, no adenopathy, non-tender LUNGS: Clear to auscultation. Normal chest wall mechanics, no w/r/r HEART: no murmurs, S1 normal and S2 normal ABDOMEN: abdomen soft, tenderness with palpation over the left lateral and left lower quadrants, mild edema noted to that area, normo-active bowel sounds, no masses, no rebound or guarding. BACK: Back is symmetrical on inspection and there is no deformity, no midline tenderness, no CVA tenderness. SKIN: no rashes, petechiae, orbruising UPPER EXTREMITIES: upper extremities are grossly normal. FROM, nml pulses b/l. LOWER EXTREMITIES: No pitting edema. FROM, nml pulses b/l. NEURO EXAM: Normal sensorium, cranial nerves II-XII grossly intact, normal speech, no facial droop,nogross weakness of arms, no gross weakness of legs. Gross sensation intact. No ataxia. Vital Signs: reviewed and remarkable Differential Diagnosis: gastritis, peptic ulcer disease, GERD, gallbladder disease, pancreatitis, small bowel obstruction, ischemic bowel, irritable bowel disease, irritable bowel syndrome, appendicitis, diverticulitis, malignancy, hernia, urinary tract infection, perforation, trauma as well as others were considered MEDICAL DECISION MAKING: This is a 63-year-old female who presents emergency department due to concern for persistent abdominal pain. Patient afebrile and vital signs stable although she appeared to be in distress on exam. Labs drawn and sent, IV established, patient started on IV fluids. Once her room was available she was monitored on telemetry additionally. Patient sent for CT of the abdomen pelvis which did not reveal any acute pathology. Patient was given IV Tylenol, IV morphine, and IV Zofran. Patient did require additional doses of morphine as well as Toradol and Bentyl to try and help control the pain. Given no clear etiology and worsening pain over the last 3 weeks despite treatment of the previously presumed mild diverticulitis, I have a lower suspicion that this was the underlying etiology. Patient with no history of similar pain. Case discussed with hospitalist for additional evaluation and management. UA still pending at the time of discussion with the hospitalist. Consultation(s): 2104: Discussed with Dr. Romero, [facility] hospitalist team. ER Treatment Provided: See below Diagnostics Interpreted By Me: -ECG: [] -Cardiac Monitoring: An order was placed for continuous cardiac monitoring. The monitor shows a rate of 86 with normal sinus rhythm. -Laboratory studies: As stated above and show below. -Imaging studies: [] Triage Nursing Note Reviewed Prior/Outside Records Reviewed -prior CT reviewed Past Med/Surg History Medical History (Updated 06/30/23 @ 21:55 by Abel Vargas MD) Acute respiratory failure with hypoxia Asthma Asthma exacerbation Diabetes mellitus, type 2 GERD (gastroesophageal reflux disease) HTN (hypertension) Hypothyroidism LLL pneumonia Pneumonia Sepsis Surgical History S/P ankle fusion S/P breast implant, silicone bilateral S/P cholecystectomy S/P hysterectomy S/P tonsillectomy Family History Other Diabetes Heart disease Hypercholesteremia Hypertension Social History Smoking Status: Never smoker Second Hand Exposure: No; Do You Dip or Chew Tobacco: No; Hx Alcohol Use: Yes Alcohol type: wine Hx Substance Use: No Preferred Language: Wolof Communication Ability: Effective Technician Automatic Required: No Beliefs That Will Affect Care: None Current Living Situation: Spouse Other Information That Helps Us Care for You: No Feels Safe at Home: Yes Safety Concerns: Feels Safe At This Time Assistive Devices: None Allergies Allergies Allergy/AdvReac Type Severity Reaction Status Date / Time amoxicillin Allergy Intermediate RED Verified 06/30/23 18:36 "BLOTCHES" doxycycline Allergy Intermediate RED Verified 06/30/23 18:36 "BLOTCHES" Sulfa (Sulfonamide Allergy Intermediate RED Verified 06/30/23 18:36 Antibiotics) "BLOTCHES". Home Meds Home Medications Medication Instructions Recorded Confirmed levothyroxine 50 mcg capsule 50 mcg PO DAILY 12/26/19 06/30/23 montelukast 10 mg tablet 10 mg PO DAILY 12/26/19 06/30/23 (Singulair) omeprazole 20 mg capsule,delayed 20 mg PO DAILY 12/26/19 06/30/23 release trazodone 150 mg tablet 150 mg PO HS 01/16/23 06/30/23 cetirizine 10 mg tablet 10 mg PO BID 03/30/23 06/30/23 diclofenac sodium 75 mg 75 mg PO BID PRN Pain 03/30/23 06/30/23 tablet,delayed release dicyclomine 10 mg capsule 10 - 20 mg PO QID PRN ABD CRAMPING 06/30/23 06/30/23 hydroxyzine HCl 25 mg tablet 25 mg PO BID PRN Anxiety 06/30/23 06/30/23 Previous Rx's Medication Instructions Recorded albuterol sulfate 2.5 mg/3 mL 2.5 mg (3 mL) inhalation Q6H PRN 01/20/23 (0.083 %) solution for nebulization cough/wheeze/shortness of breath #90 mL albuterol sulfate 90 mcg/actuation 2 puffs inhalation Q4H PRN 01/20/23 breath activated powder cough/wheeze/shortness of breath inhaler,sensor #1 ea amlodipine 10 mg tablet 10 mg PO DAILY #30 tabs 01/20/23 blood sugar diagnostic (LizzethTouch #100 ea 01/20/23 Verio test strips) lancets 33 gauge (LizzethTouch Delica #100 ea 01/20/23 Lancets) mometasone-formoterol HFA 100 2 puff inhalation BID #13 grams 04/01/23 mcg-5 mcg/actuation aerosol inhaler (Dulera) Results & Data (ED) Vital Signs Vital Signs - 24 hr 06/30/23 14:24 06/30/23 19:13 06/30/23 19:13 Temperature 36.9 C Temperature Source Temporal Artery Scan Pulse Rate 88 91 H Pulse Rhythm Regular Respiratory Rate 16 Respiratory Depth Normal Blood Pressure 143/85 H Blood Pressure Mean 104 Pulse Oximetry 97 95 Oxygen Delivery Method Room Air Room Air Room Air Sepsis Recent Fever Within 48 Hours No Sepsis New/Unexplained Change in Mental Status No Sepsis Action Taken by Nursing No Action Required 06/30/23 20:57 Temperature Temperature Source Pulse Rate 87 Pulse Rhythm Respiratory Rate Respiratory Depth Blood Pressure Blood Pressure Mean Pulse Oximetry Oxygen Delivery Method Sepsis Recent Fever Within 48 Hours Sepsis New/Unexplained Change in Mental Status Sepsis Action Taken by Nursing Laboratory Data 06/30/23 15:18 06/30/23 15:18 Lab Results 06/30/23 06/30/23 06/30/23 Range/Units 15:18 15:18 18:16 WBC 6.75 (4.8-10.8) K/ul RBC 5.20 (4.20-5.40) M/uL Hgb 14.2 (12.0-16.0) g/dl Hct 43.2 (37.0-47.0) % MCV 83.1 (80.0-100.0) fL MCH 27.3 (25.0-34.0) pg MCHC 32.9 (32.0-36.0) g/dL RDW Std Deviation 45.8 (36.4-46.3) fL RDW Coeff of Freddy 15.2 H (11.5-14.5) % Plt Count 240 (130-400) K/uL MPV 9.0 L (9.4-12.4) fL Immature Gran % (Auto) 0.1 % Neut % (Auto) 60.8 % Lymph % (Auto) 30.4 % Andrews % (Auto) 5.6 % Eos % (Auto) 2.5 % Baso % (Auto) 0.6 % Neut # (Auto) 4.10 (1.40-6.50) K/uL Lymph # (Auto) 2.05 (1.20-3.40) K/uL Andrews # (Auto) 0.38 (0.11-0.59) K/uL Eos # (Auto) 0.17 (0.00-0.50) K/uL Baso # (Auto) 0.04 (0.00-0.20) K/uL Immature Gran # (Auto) 0.01 (0.01-0.20) K/uL Sodium 139 (136-145) mmol/L Potassium 4.1 (3.5-5.1) mmol/L Chloride 104 (98-107) mmol/L Carbon Dioxide 24 (21-32) mmol/L Anion Gap 11 (3-11) BUN 11 (6-23) mg/dl Creatinine 0.85 (0.6-1.2) mg/dl Est Cr Clr Drug Dosing 64.2 ml/min Est GFR ( Amer) 84.5 ml/min Est GFR (Non-Af Amer) 72.9 ml/min BUN/Creatinine Ratio 12.9 (10-20) Glucose 131 H (70-99(Fasting)) mg/dl Lactate 0.9 (0.4-2.0) mmol/L Calcium 10.9 H (8.6-10.3) mg/dl Total Bilirubin 1.0 (0.2-1.0) mg/dl AST 18 (13-39) U/L ALT 19 (7-52) U/L Alkaline Phosphatase 84 (34-104) U/L Total Protein 8.5 H (6.0-8.3) gm/dl Albumin 5.2 H (3.4-5.0) gm/dl Globulin 3.3 (2.5-4.0) gm/dl Albumin/Globulin Ratio 1.6 (0.9-2) Lipase 16 (11-82) U/L Administered Medications Acetaminophen (Acetaminophen 325 Mg Tab) 650 mg PO Q6H MEGAN Stop: 07/31/23 01:59 Last Admin: 07/01/23 01:02 Dose: 650 mg Documented By: NOAH Al Hydrox/Mg Hydrox/Simethicone (Aluminum/Magnesium Susp 30 Ml Udc) 15 ml PO Q6H MEGAN Stop: 07/31/23 00:00 Last Admin: 07/01/23 00:55 Dose: 15 ml Documented By: NOAH Dicyclomine HCl (Dicyclomine Hcl 10 Mg Cap) 10 mg PO Q6H MEGAN Stop: 07/31/23 01:59 Last Admin: 07/01/23 01:03 Dose: 10 mg Documented By: NOAH Magnesium Sulfate/Dextrose (Magnesium Sulfate / D5w) 1 gm in 100 mls @ 50 mls/hr IV Q2H MEGAN Stop: 07/01/23 04:59 Last Admin: 07/01/23 02:56 Dose: 50 mls/hr Documented By: Infusion: 07/01/23 02:55 Dose: 0 mls/hr Documented By: Admin: 07/01/23 00:56 Dose: 50 mls/hr Documented By: NOAH Discontinued Medications Acetaminophen (Acetaminophen 325 Mg Tab) 650 mg PO Q6 MEGAN Stop: 07/31/23 00:00 Last Admin: 07/01/23 01:08 Dose: Not Given Documented By: NOAH Diazepam (Diazepam 5 Mg Tablet) 10 mg PO NOW STA Stop: 07/01/23 00:35 Last Admin: 07/01/23 01:00 Dose: 10 mg Documented By: NOAH Dicyclomine HCl (Dicyclomine Hcl 10 Mg Cap) 10 mg PO NOW ONE Stop: 06/30/23 18:52 Last Admin: 06/30/23 19:12 Dose: 10 mg Documented By: BRANDI Hydromorphone HCl (Hydromorphone Inj 1 Mg/Ml Syringe) 1 mg IV NOW STA Stop: 06/30/23 21:39 Last Admin: 06/30/23 23:33 Dose: 1 mg Documented By: BRANDI Acetaminophen (Ofirmev) 1,000 mg in 100 mls @ 400 mls/hr IV NOW STA Stop: 06/30/23 18:19 Last Infusion: 07/01/23 00:32 Dose: 0 mls/hr Documented By: Admin: 06/30/23 19:11 Dose: 400 mls/hr Documented By: BRANDI Sodium Chloride (Nss) 1,000 mls @ 999 mls/hr IV .Q1H1M ONE Stop: 06/30/23 19:05 Last Infusion: 07/01/23 00:33 Dose: 0 mls/hr Documented By: Admin: 06/30/23 19:11 Dose: 999 mls/hr Documented By: BRANDI Sodium Chloride (Nss) 1,000 mls @ 999 mls/hr IV .Q1H1M ONE Stop: 06/30/23 21:50 Last Infusion: 07/01/23 00:34 Dose: 0 mls/hr Documented By: Admin: 06/30/23 23:33 Dose: 999 mls/hr Documented By: BRANDI Famotidine (Pepcid 20mg Iv Push) 20 mg in 5 mls @ 2.5 mls/min IV NOW STA Stop: 06/30/23 21:39 Last Admin: 06/30/23 23:33 Dose: 2.5 mls/min Documented By: BRANDI Ioversol (Optiray 320 100ml) 90 ml IV ONCE ONE Stop: 06/30/23 16:54 Last Admin: 06/30/23 16:53 Dose: 90 ml Documented By: NESHA Ketorolac Tromethamine (Ketorolac Tromethamine 15 Mg/Ml Vial) 10 mg IV NOW ONE Stop: 06/30/23 20:52 Last Admin: 06/30/23 21:07 Dose: 10 mg Documented By: BRANDI Morphine Sulfate (Morphine Sulfate 4 Mg/Ml 1 Ml Carp\\Vial) 4 mg IV NOW STA Stop: 06/30/23 18:06 Last Admin: 06/30/23 19:11 Dose: 4 mg Documented By: BRANDI Morphine Sulfate (Morphine Sulfate 4 Mg/Ml 1 Ml Carp\\Vial) 4 mg IV NOW STA Stop: 06/30/23 19:54 Last Admin: 06/30/23 20:12 Dose: 4 mg Documented By: BRANDI Ondansetron HCl (Ondansetron Inj 2 Mg/Ml 2 Ml Vial) 4 mg IV NOW STA Stop: 06/30/23 18:08 Last Admin: 06/30/23 19:12 Dose: 4 mg Documented By: BRANDI Imaging Data Radiologist's Impression: Lumbar Spine CT 06/30/23 14:28 CT abd pelvis IV con only, CT lumbar spine w con CLINICAL HISTORY: abd pain TECHNIQUE: Helical axial images of the abdomen and pelvis were obtained and displayed. Automated dose lowering techniques and/or adjustment according to patient size were utilized for this exam. Dedicated images of the lumbar spine were obtained. This exam was performed with intravenous contrast. CT DOSE: 1142.78 mGy.cm COMPARISON: Comparison is made to CT head and pelvis 06/09/2023 FINDINGS: Lower chest: Bibasilar atelectasis versus scarring is seen. Liver: Unremarkable. No focal lesions are seen. Gallbladder and biliary tree: Patient is status post cholecystectomy. No intra- or extrahepatic biliary ductal dilation. Pancreas: Unremarkable, no focal lesions. Spleen: Splenule is incidentally noted. Adrenals: Unremarkable. Kidneys and ureters: Unremarkable. Bladder: Limited evaluation due to underdistention. Reproductive organs: Patient is status post hysterectomy. Bowel: Diverticulosis is seen without diverticulitis. The appendix is normal. Lymph nodes Retroperitoneal: Unremarkable. Pelvic: Unremarkable. Mesenteric: Unremarkable. Peritoneum: Normal. Vessels: Atherosclerotic calcifications are seen. Abdominal wall: Unremarkable. Bones: Degenerative changes in the visualized spine. IMPRESSION: No acute abnormalities to explain abdominal pain. Diverticulosis is seen without evidence of diverticulitis. ACT 112: Negative or not required by law. Electronically signed by: Stan Conklin M.D. 06/30/2023 5:51 PM Abdomen/Pelvis CT 06/30/23 14:29 CT abd pelvis IV con only, CT lumbar spine w con CLINICAL HISTORY: abd pain TECHNIQUE: Helical axial images of the abdomen and pelvis were obtained and displayed. Automated dose lowering techniques and/or adjustment according to patient size were utilized for this exam. Dedicated images of the lumbar spine were obtained. This exam was performed with intravenous contrast. CT DOSE: 1142.78 mGy.cm COMPARISON: Comparison is made to CT head and pelvis 06/09/2023 FINDINGS: Lower chest: Bibasilar atelectasis versus scarring is seen. Liver: Unremarkable. No focal lesions are seen. Gallbladder and biliary tree: Patient is status post cholecystectomy. No intra- or extrahepatic biliary ductal dilation. Pancreas: Unremarkable, no focal lesions. Spleen: Splenule is incidentally noted. Adrenals: Unremarkable. Kidneys and ureters: Unremarkable. Bladder: Limited evaluation due to underdistention. Reproductive organs: Patient is status post hysterectomy. Bowel: Diverticulosis is seen without diverticulitis. The appendix is normal. Lymph nodes Retroperitoneal: Unremarkable. Pelvic: Unremarkable. Mesenteric: Unremarkable. Peritoneum: Normal. Vessels: Atherosclerotic calcifications are seen. Abdominal wall: Unremarkable. Bones: Degenerative changes in the visualized spine. IMPRESSION: No acute abnormalities to explain abdominal pain. Diverticulosis is seen without evidence of diverticulitis. ACT 112: Negative or not required by law. Electronically signed by: Stan Conklin M.D. 06/30/2023 5:51 PM Discharge Plan Visit Data Chief Complaint: Back Injury/Pain Stated Complaint: DOC REF,BACK PAIN INTO ABD,CANT LAY/SIT,NAUSEA, ED Provider: Cheri Ornelas Discharge Problem: Abdominal pain, Back pain, Nausea Patient Disposition: Admitted As Inpatient Discharge Instructions Interventions: ED Discharge Assessment Last Done: 06/30/23 23:58
[2023-06-30] MEDS ORDERED: DICYCLOMINE HCL 10 MG CAP PO ONE (18:51)
[2023-06-30] MEDS ORDERED: KETOROLAC TROMETHAMINE 15 MG/ML VIAL IV ONE (20:51)
[2023-06-30] MEDS ORDERED: FAMOTIDINE 20MG IV PUSH 20 MG/5 ML SYR IV STA (21:38)
[2023-06-30] MEDS ORDERED: HYDROmorphone INJ 1 MG/ML SYRINGE IV STA (21:38)
--- NOTE | 2023-06-30 21:40 | History & Physical Report ---
Date of Service June 30, 2023 Assessment & Plan (1) Abdominal pain: Plan: -Workup does not suggest infectious process given labs/imaging and no real improvement with antibiotics -Suspect pain may be due to NSAID gastritis vs muscular etiology given exam findings. Low suspicion for acute bleeding at present -We will hold home diclofenac, avoiding Toradol -Pain regimen -Tylenol 650 mg q6h scheduled -Bentyl 10 mg q6h scheduled -Valium 10 mg x1 -Magnesium infusion 2gm -Heating pad application -Can provide spot doses of morphine/Dilaudid for breakthrough pain -Added scheduled Maalox given pt complaints of dyspepsia/bloating -Anticipate d/c once pain adequately controlled, pt may benefit from OMT as outpatient (2) Back pain: Plan: -Lumbar spine CT negative for acute process -As above (3) Diabetes mellitus, type 2: Plan: -Reports last A1C 6.5% in 04/2023, diet-controlled -BSG checks ACHS -Deferring basal/SSI for now (4) Asthma: Plan: -Not in acute exacerbation -Continue home inhalers, cetirizine, montelukast (5) GERD (gastroesophageal reflux disease): Plan: -Continue home omeprazole (6) HTN (hypertension): Plan: -BP stable -Continue amlodipine (7) Hypothyroidism: Plan: -Continue levothyroxine (8) Anxiety: Plan: -Continue home hydroxyzine PRN (9) Insomnia: Plan: -Continue trazodone Plan FENGI: Full liquids, DM1 Code status: Full DVT prophylaxis: SCDs Isolation: Pending COVID Disposition: Medical/surgical History of Present Illness Chief Complaint: Abdominal pain Primary Care Provider: Keri Dasha Pt is 63 yo F with PMH HTN, asthma, anxiety, hypothyroidism, GERD, insomnia presenting with abdominal pain. Pt reports onset of sharp back/flank/abdominal pain 1 month prior- R back wrapp ing lower ribcage to RUQ and RLQ. She was seen in ER on 06/09 with largely negative workup including CTAP but was diagnosed with suspected mild diverticulitis and treated with antibiotics as outpatient (reports ciprofloxacin was one of these medications, cannot recall other) which did not improve her symptoms. Her symptoms were tolerable but then worsened in severity on 06/26 to 08/03 pain and now bilateral. She has been taking 600 mg ibuprofen BID daily along with Tylenol and Epsom salt baths since then which has helped with mild symptom relief. She reports associated symptoms of nausea, reduced appetite, chills, myalgias, bloating. Denies fevers, vomiting, overt diarrhea/constipation. She does report COVID exposure via her neighbor 1 week prior but has not had any respiratory symptoms. Pt arrived to ER hemodynamically stable. Initial evaluation with unremarkable CBC, CMP, lumbar spine CT, CTAP. ER interventions include morphine 4 mg IV x2, Tylenol 1000 mg IV, 1L NSS bolus, Zofran 4 mg IV, Bentyl 10 mg, Toradol 10 mg IV, Dilaudid 1 mg IV, famotidine 20 mg IV. At present, pt reports mild symptom relief from pain medications, denies any new complaints. Allergies Allergy/AdvReac Type Severity Reaction Status Date / Time amoxicillin Allergy Intermediate RED Verified 06/30/23 18:36 "BLOTCHES" doxycycline Allergy Intermediate RED Verified 06/30/23 18:36 "BLOTCHES" Sulfa (Sulfonamide Allergy Intermediate RED Verified 06/30/23 18:36 Antibiotics) "BLOTCHES". Home Medications Medication Instructions Recorded Confirmed Type levothyroxine 50 mcg capsule 50 mcg PO DAILY 12/26/19 06/30/23 History montelukast 10 mg tablet 10 mg PO DAILY 12/26/19 06/30/23 History (Singulair) omeprazole 20 mg capsule,delayed 20 mg PO DAILY 12/26/19 06/30/23 History release trazodone 150 mg tablet 150 mg PO HS 01/16/23 06/30/23 History albuterol sulfate 2.5 mg/3 mL 2.5 mg (3 mL) inhalation Q6H PRN 01/20/23 06/30/23 Rx (0.083 %) solution for nebulization cough/wheeze/shortness of breath #90 mL albuterol sulfate 90 mcg/actuation 2 puffs inhalation Q4H PRN 01/20/23 06/30/23 Rx breath activated powder cough/wheeze/shortness of breath inhaler,sensor #1 ea amlodipine 10 mg tablet 10 mg PO DAILY #30 tabs 01/20/23 06/30/23 Rx blood sugar diagnostic ([employer] TeleCareTouch #100 ea 01/20/23 03/30/23 Rx Verio test strips) lancets 33 gauge (OneTouch Delica #100 ea 01/20/23 03/30/23 Rx Lancets) cetirizine 10 mg tablet 10 mg PO BID 03/30/23 06/30/23 History diclofenac sodium 75 mg 75 mg PO BID PRN Pain 03/30/23 06/30/23 History tablet,delayed release mometasone-formoterol HFA 100 2 puff inhalation BID #13 grams 04/01/23 06/30/23 Rx mcg-5 mcg/actuation aerosol inhaler (Dulera) dicyclomine 10 mg capsule 10 - 20 mg PO QID PRN ABD CRAMPING 06/30/23 06/30/23 History hydroxyzine HCl 25 mg tablet 25 mg PO BID PRN Anxiety 06/30/23 06/30/23 History Past Med/Surg History Medical History (Updated 06/30/23 @ 21:55 by Abel Vargas MD) Acute respiratory failure with hypoxia Asthma Asthma exacerbation Diabetes mellitus, type 2 GERD (gastroesophageal reflux disease) HTN (hypertension) Hypothyroidism LLL pneumonia Pneumonia Sepsis Surgical History S/P ankle fusion S/P breast implant, silicone bilateral S/P cholecystectomy S/P hysterectomy S/P tonsillectomy Family History Other Diabetes Heart disease Hypercholesteremia Hypertension Social History Smoking Status: Never smoker Hx Alcohol Use: Yes Alcohol type: wine Hx Substance Use: No Preferred Language: Kosovan Communication Ability: Effective [employer] Required: No Beliefs That Will Affect Care: None Current Living Situation: Spouse Feels Safe at Home: Yes Assistive Devices: None Review of Systems Review of Systems: Per HPI Physical Exam Physical Exam: General: well-appearing, no acute distress HEENT: PERRL, EOMI, conjunctivae clear without injection, anicteric sclerae, moist mucous membranes, clear oropharynx without exudate or erythema Neck: supple, trachea midline, no thyromegaly, no JVD, no cervical lymphadenopathy CV: RRR, normal S1 and S2, no murmurs Resp: CTAB, no increased work of breathing, no crackles or wheezes Abd: Soft, diffusely tender in all quadrants, nondistended, no guarding or rebound, no hepatosplenomegaly MSK: Normal bulk of all four extremities. Noted pain to palpation of b/l flanks and abdominal muscle wall along lower ribcage distribution Neuro: AOx3, no focal motor or sensory deficits Skin: no rashes or lesions, warm and dry Ext: no LE peripheral edema or erythema, capillary refill <2s in all four extremities, 2+ LE peripheral pulses b/l Results & Data Results & Data Vital Signs (Past 12 Hours) Vital Signs Temp Pulse Resp BP Pulse Ox O2 Del Method 06/30/23 20:57 87 06/30/23 19:13 91 H 95 Room Air 06/30/23 19:13 Room Air 06/30/23 14:24 36.9 C 88 16 143/85 H 97 Room Air Code Status & VTE Plan VTE Prophylaxis Plan VTE Prophylaxis will be ordered: Yes Supervising Physician Co-Signing Physician Notes Patient seen and examined, chart reviewed, case discussed with Dr. Vargas and I agree with the assessment and plan as above. In brief, patient presents with severe abdominal pain, cramping, gas. Recently completed a course of antibiotics for acute uncomplicated diverticulitis. Etiology unclear - labs and images are largely unremarkable Her abdomen is tender on exam but not acute or severely tender Has been taking a lot of NSAIDS of late On exam she is afebrile, HD stable, non-toxic Skin - intact, no rash HEENT - NC/AT, PERRL, MMM Heart - +S1/S2, regular, no m/r/g Lungs - CTA Abd - tender in lower abdomen and across bilateral flanks. Tenderness with palpation of paraspinal musculature of lumbar spine. Ext - well perfused Labs and images reviewed Assessment/Plan - abdominal pain, etiology unclear. Imaging and labs largely unremarkable. She does have a mild elevation of Ca - doubtful that this is contributing. Likely muscular, ?gastritis -Symtpomatic management as above - Tylenol, Bentyl, Valium -Repeat chemistry in AM -Remainder as above Resident Activity Tracking Resident Involvement: Resident Care Provided Care Provided: Adult Hospital Medicine
[2023-06-30 23:51] LABS: Appearance Urine Clear (Clear); Bilirubin Urine Negative (Negative); Blood Urine Negative (Negative); Color Urine Yellow; Glucose Urine UA Negative (Negative); Ketones Urine 2+ (Negative); Leukocyte Esterase Urine Negative (Negative); Nitrite Urine Negative (Negative); Protein Urine Negative (Negative); Specific Gravity Urine > 1.045 (1.000-1.030); Urobilinogen Urine Negative (Negative); pH Urine 5.5 (4.5-7.5)
[2023-07-01] MEDS ORDERED: ACETAMINOPHEN 325 MG TAB PO SCH
[2023-07-01] MEDS ORDERED: GLUCOSE 10 TAB/TUBE PO PRN (00:20)
[2023-07-01] MEDS ORDERED: GLUCOSE 40% GEL 15 GM TUBE PO PRN (00:20)
[2023-07-01] MEDS ORDERED: GLUCAGON FOR INJ 1 MG VIAL SQ PRN (00:20)
[2023-07-01] MEDS ORDERED: CARBOHYDRATES FOR HYPOGLYCEMIA PO PRN (00:20)
[2023-07-01] MEDS ORDERED: ALBUTEROL HFA 8 GM INHALER INH PRN (00:20)
[2023-07-01] MEDS ORDERED: hydrOXYzine HCl 25 MG TAB PO PRN (00:20)
[2023-07-01] MEDS ORDERED: DEXTROSE 50% 50 ML SYRINGE IV PRN (00:20)
[2023-07-01] MEDS ORDERED: diazePAM 5 MG TABLET PO STA (00:34)
--- NOTE | 2023-07-01 00:48 | Billing Data ---
Date of Service June 30, 2023 Coding Level of Care Code 48496 INT INP/OBS CARE
[2023-07-01] MEDS: ALUMINUM/MAGNESIUM SUSP 30 ML UDC PO SCH ×5 (00:55→23:52)
[2023-07-01] MEDS: MAGNESIUM SULFATE / D5W 1 GM/100 ML BAG IV SCH ×2 (00:56→02:56)
[2023-07-01] MEDS: ACETAMINOPHEN 325 MG TAB PO SCH ×4 (01:02→20:16)
[2023-07-01] MEDS: DICYCLOMINE HCL 10 MG CAP PO SCH ×4 (01:03→20:17)
[2023-07-01] MEDS ORDERED: MoRPHine SULFATE 2 MG/ML CARP IV STA (05:11)
[2023-07-01] MEDS: LEVOTHYROXINE SODIUM 50 MCG TABLET PO SCH (05:35)
[2023-07-01] MEDS: CETIRIZINE HCL 10 MG TABLET PO SCH (07:53)
[2023-07-01] MEDS: amLODIPine BESYLATE 5 MG TAB PO SCH (07:53)
[2023-07-01] MEDS: MONTELUKAST SODIUM 10 MG TABLET PO SCH (07:54)
[2023-07-01] MEDS: FLUTICASONE/VILANTEROL 100/25MCG 14 PUFFS/INHALER INH SCH (07:55)
[2023-07-01] MEDS: SODIUM CHLORIDE 0.9% 1,000 ML IV SCH ×2 (08:41→20:22)
[2023-07-01] MEDS: MoRPHine SULFATE 2 MG/ML CARP IV PRN ×4 (08:45→19:34)
[2023-07-01] MEDS ORDERED: PANTOprazole 40 MG TAB PO SCH (09:00)
[2023-07-01] MEDS ORDERED: CETIRIZINE HCL 10 MG TABLET PO SCH (09:00)
[2023-07-01] MEDS: SUCRALFATE 1 GM TAB PO SCH ×4 (09:27→20:16)
[2023-07-01 09:28] LABS: Hematocrit (blood only) 38.1 % (37.0-47.0); Hemoglobin 12.5 g/dl (12.0-16.0); Mean Corpuscular Hemoglobin 27.5 pg (25.0-34.0); Mean Corpuscular Hgb Conc 32.8 g/dL (32.0-36.0); Mean Corpuscular Volume 83.7 fL (80.0-100.0); Mean Platelet Volume 9.2 fL (9.4-12.4); Platelet Count 210 K/uL (130-400); RDW Coefficient of Variation 14.7 % (11.5-14.5); Red Blood Count 4.55 M/uL (4.20-5.40); White Blood Count 6.86 K/ul (4.8-10.8)
[2023-07-01 09:42] LABS: Albumin Globulin Ratio 1.7 (0.9-2); Albumin Level 4.3 gm/dl (3.4-5.0); BUN Creatinine Ratio 14.5 (10-20); Bilirubin,Total 0.7 mg/dl (0.2-1.0); Calcium 9.5 mg/dl (8.6-10.3); Creatinine Clr Calc Pharmacy 79.1 ml/min; Est GFR (African American) 107.4 ml/min; Est GFR (Non-African American) 92.6 ml/min; Globulin 2.6 gm/dl (2.5-4.0); Magnesium 2.4 mg/dl (1.7-2.4); Potassium 4.1 mmol/L (3.5-5.1); Total Protein 6.9 gm/dl (6.0-8.3)
--- NOTE | 2023-07-01 13:42 | Hospitalist Progress Note ---
Date of Service July 01, 2023 Assessment & Plan (1) Abdominal pain: Plan: Continue PPI therapy and Carafate. Full liquids for now. GI consultation pending. She may need EGD this admission. No overt melena or hematochezia. Fecal occult blood is pending.she previously has had her gallbladder removed (2) Back pain: Plan: Lumbar spine CT negative for acute process. Pain control measures (3) Diabetes mellitus, type 2: Plan: She is on full liquids for now. Sliding scale coverage. (4) Asthma: Plan: Stable. Continue current medical management (5) GERD (gastroesophageal reflux disease): Plan: She is on PPI therapy (6) HTN (hypertension): Plan: Stable. Continue current medical management with amlodipine (7) Hypothyroidism: Plan: Stable. Continue levothyroxine replacement therapy (8) Anxiety: Plan: Stable. Continue hydroxyzine PRN (9) Insomnia: Plan: Stable. Continue trazodone Plan Hopeful discharge back to home soon Admission and Anticipated Discharge Date Admission Date: June 30, 2023 Subjective Alert and oriented. No acute distress. She has epigastric pain that could be gastritis or possibly peptic ulcer disease. She is on PPI therapy and Carafate at this time. She denies melena or hematochezia. Fecal occult blood is pending. GI consultation requested for possible EGD. She is on full liquid diet for now along with IV fluids. Review of Systems Review of Systems: Constitutional-no fever or chills ENT-no blurred vision, no double vision, no epistaxis, no sore throat Respiratory-no cough, no wheezing, no shortness of breath Cardiac-no palpitations, no chest pain, no syncope GI-epigastric pain. Intermittent nausea. No overt melena or hematochezia -no urinary retention, no urinary incontinence, no dysuria, no hematuria Musculoskeletal-no joint pain, no muscle tenderness Skin-no bruising, no rashes, no pruritus Neuro-no isolated weakness, no paresthesia, no weakness Psych-no depression, no anxiety Physical Exam Physical Exam: General-alert and oriented x3, no fevers, no chills HEENT-head atraumatic and normocephalic, pupils equal and reactive to light, extraocular muscles intact Neck-no lymphadenopathy or thyromegaly, trachea midline Chest-clear to auscultation percussion. No rales wheezing or rhonchi Cardiac-regular rate and rhythm, normal S1 and S2, no murmurs Abdomen-normal bowel sounds, no hepatosplenomegaly. Tender epigastric area. No masses. No rebound or guarding Extremities-no cyanosis, clubbing, or edema Neuro-cranial nerves II through XII intact, motor and sensory function within normal limits, strength symmetrical, no focal deficits Psych-normal affect, normal mood Results & Data Results & Data Vital Signs (Past 12 Hours) Vital Signs Temp Pulse Resp BP Pulse Ox O2 Del Method 07/01/23 07:05 36.4 C L 81 16 149/80 H 95 Room Air Laboratory Results 07/01/23 08:25 07/01/23 08:25 PG Care Time/CCT Total # of Minutes Spent Total Time Spent with Patient: Total time spent is greater than 50% in coordination of care (as documented) at patient's floor/unit and/or counseling patient: Coding Level of Care Code 13164 SUB INP/OBS CARE 3/50MIN Diagnoses Abdominal pain R10.9 Back pain M54.9 Diabetes mellitus, type 2 E11.9 Asthma J45.909 GERD (gastroesophageal reflux disease) K21.9 HTN (hypertension) I10 Hypothyroidism E03.9 Anxiety F41.9 Insomnia G47.00
[2023-07-01] MEDS: traZODone HCL 50 MG TAB PO SCH (20:17)
[2023-07-01] MEDS: PANTOprazole 40 MG TAB PO SCH (20:18)
[2023-07-02] MEDS: DICYCLOMINE HCL 10 MG CAP PO SCH ×4 (01:09→22:13)
[2023-07-02] MEDS: ACETAMINOPHEN 325 MG TAB PO SCH ×4 (01:10→22:13)
[2023-07-02] MEDS: MoRPHine SULFATE 2 MG/ML CARP IV PRN ×4 (01:11→11:30)
[2023-07-02] MEDS ORDERED: LIDOCAINE 5% 1 PATCH TD ONE (03:30)
[2023-07-02] MEDS: ALUMINUM/MAGNESIUM SUSP 30 ML UDC PO SCH ×4 (06:03→23:48)
[2023-07-02] MEDS: LEVOTHYROXINE SODIUM 50 MCG TABLET PO SCH (06:03)
[2023-07-02] MEDS ORDERED: MoRPHine SULFATE 2 MG/ML CARP IV STA (06:12)
[2023-07-02] MEDS ORDERED: oxyCODONE/ACETAMINOPHEN 5mg/325mg TAB PO STA (06:51)
[2023-07-02] MEDS: PANTOprazole 40 MG TAB PO SCH ×2 (08:55→22:13)
[2023-07-02] MEDS: MONTELUKAST SODIUM 10 MG TABLET PO SCH (08:56)
[2023-07-02] MEDS: SUCRALFATE 1 GM TAB PO SCH ×4 (08:56→22:13)
[2023-07-02] MEDS: CETIRIZINE HCL 10 MG TABLET PO SCH (08:56)
[2023-07-02] MEDS: amLODIPine BESYLATE 5 MG TAB PO SCH (08:56)
[2023-07-02] MEDS: FLUTICASONE/VILANTEROL 100/25MCG 14 PUFFS/INHALER INH SCH (08:57)
[2023-07-02] MEDS: SODIUM CHLORIDE 0.9% 1,000 ML IV SCH ×2 (09:27→21:01)
--- NOTE | 2023-07-02 09:45 | Gastrointestinal Consultation ---
Date of Consultation July 02, 2023 Assessment & Plan (1) Abdominal pain: (2) GERD (gastroesophageal reflux disease): (3) Nausea: Plan -KUB. -Continue Pantoprazole 40 mg BID. -Continue Dicyclomine 10 mg every 6 hours as needed. -Outpatient colonoscopy. Thank you for allowing us to participate in the care of this patient. If you have any questions or concerns, please do not hesitate to contact us. Supervising Physician Co-Signing Physician Notes I saw the patient and agree with the findings as documented by LORRIE Lizarraga History of Present Illness Reason for Consultation: Epigastric pain Requesting Physician: Dr. Garcia Attending Physician: Jignesh Garcia MD History of Present Illness Patient is a 63 y.o. female with a history of GERD, HTN, Asthma, Anxiety, and Hypothyroidism admitted intractable abdominal pain which began approximately one month ago. At the onset, she reports she was bitten by a spider on her back and had pain that radiated across her left flank and into the abdomen. She was later treated oral antibiotics on 06/09 after an ER visit for the abdominal pain for possible diverticulitis. She reports the antibiotics did not improve her pain. The pain and fatigue have been progressively worsening, which prompted her to return to the hospital. She describes the pain as a constant ache across her abdomen with intermittent sharp, crampy pains "like menstrual cramps". There is associated nausea without vomiting. No fevers or chills, diarrhea, or rectal bleeding. Has not had a BM x 2 days. Despite this, she was defecating normally previously. No alleviating factors. No exacerbating factors. The patient did have a repeat CT and laboratory testing which were unremarkable. Allergies Allergy/AdvReac Type Severity Reaction Status Date / Time amoxicillin Allergy Intermediate RED Verified 06/30/23 18:36 "BLOTCHES" doxycycline Allergy Intermediate RED Verified 06/30/23 18:36 "BLOTCHES" Sulfa (Sulfonamide Allergy Intermediate RED Verified 06/30/23 18:36 Antibiotics) "BLOTCHES". Home Medications Medication Instructions Recorded Confirmed Type levothyroxine 50 mcg capsule 50 mcg PO DAILY 12/26/19 06/30/23 History montelukast 10 mg tablet 10 mg PO DAILY 12/26/19 06/30/23 History (Singulair) omeprazole 20 mg capsule,delayed 20 mg PO DAILY 12/26/19 06/30/23 History release trazodone 150 mg tablet 150 mg PO HS 01/16/23 06/30/23 History albuterol sulfate 2.5 mg/3 mL 2.5 mg (3 mL) inhalation Q6H PRN 01/20/23 06/30/23 Rx (0.083 %) solution for nebulization cough/wheeze/shortness of breath #90 mL albuterol sulfate 90 mcg/actuation 2 puffs inhalation Q4H PRN 01/20/23 06/30/23 Rx breath activated powder cough/wheeze/shortness of breath inhaler,sensor #1 ea amlodipine 10 mg tablet 10 mg PO DAILY #30 tabs 01/20/23 06/30/23 Rx blood sugar diagnostic (OneTouch #100 ea 01/20/23 03/30/23 Rx Verio test strips) lancets 33 gauge (OneTouch Delica #100 ea 01/20/23 03/30/23 Rx Lancets) cetirizine 10 mg tablet 10 mg PO BID 03/30/23 06/30/23 History diclofenac sodium 75 mg 75 mg PO BID PRN Pain 03/30/23 06/30/23 History tablet,delayed release mometasone-formoterol HFA 100 2 puff inhalation BID #13 grams 04/01/23 06/30/23 Rx mcg-5 mcg/actuation aerosol inhaler (Lisa) dicyclomine 10 mg capsule 10 - 20 mg PO QID PRN ABD CRAMPING 06/30/23 06/30/23 History hydroxyzine HCl 25 mg tablet 25 mg PO BID PRN Anxiety 06/30/23 06/30/23 History Patient History Medical History Acute respiratory failure with hypoxia Asthma Asthma exacerbation Diabetes mellitus, type 2 GERD (gastroesophageal reflux disease) HTN (hypertension) Hypothyroidism LLL pneumonia Pneumonia Sepsis Surgical History S/P ankle fusion S/P breast implant, silicone bilateral S/P cholecystectomy S/P hysterectomy S/P tonsillectomy Family History Other Diabetes Heart disease Hypercholesteremia Hypertension Social History Smoking Status: Never smoker Second Hand Exposure: No; Do You Dip or Chew Tobacco: No; Hx Alcohol Use: Yes Alcohol type: wine Hx Substance Use: No Preferred Language: Georgian Communication Ability: Effective Employment Trainer Required: No Beliefs That Will Affect Care: None Current Living Situation: Spouse Other Information That Helps Us Care for You: No Feels Safe at Home: Yes Safety Concerns: Feels Safe At This Time Assistive Devices: None Review of Systems Review of Systems: All systems reviewed & are unremarkable except as noted in HPI & below Physical Exam Constitutional: WD/WN, vitals as above Eyes: EOM intact bilaterally Neck: normal appearance Respiratory: normal respiratory effort, lungs clear to auscultation Cardiovascular: Rate/Rhythm: regular rate and regular rhythm Heart Sounds: no gallop and no murmur Gastrointestinal (Abdomen): Inspection/Auscultation: + abdomen distended and normal bowel sounds Percussion/Palpation: + abdomen tender and abdomen soft; no guarding and abdomen not rigid Musculoskeletal: Extremities: no cyanosis no lower extremity edema Skin: no rashes, warm and dry Neurologic: moves all extremities Psychiatric: A+Ox3, euthymic affect Results & Data Vital Signs (Past 12 Hours) Vital Signs Temp Pulse Resp BP Pulse Ox O2 Del Method 07/02/23 07:34 36.6 C 77 16 128/77 96 Room Air PG Care Time/CCT Total # of Minutes Spent Total Time Spent with Patient: Total time spent is greater than 50% in coordination of care (as documented) at patient's floor/unit and/or counseling patient: Coding Level of Care Code 76219 IN/OBS CONSULT LVL 4,60M Diagnoses Abdominal pain R10.9 GERD (gastroesophageal reflux disease) K21.9 Nausea R11.0
--- NOTE | 2023-07-02 10:30 | XRay Report ---
XR KUB/Abdomen 1 view CLINICAL HISTORY: severe abdominal pain TECHNIQUE: 1 view of the abdomen was obtained. Comparison: Comparison is made to CT abdomen pelvis 06/30/2023 FINDINGS: Cholecystomy clips are seen in the right upper quadrant. Degenerative changes are seen in the visuali zed skeleton. The bowel gas pattern is nonobstructive. Small stool burden is seen. IMPRESSION: Nonobstructive bowel gas pattern. ACT 112: Negative or not required by law. Electronically signed by: Stan Conklin M.D. 07/02/2023 10:29 AM
[2023-07-02 11:08] LABS: Basophils # (auto) 0.04 K/uL (0.00-0.20); Basophils % (auto) 0.6 %; Eosinophils # (auto) 0.16 K/uL (0.00-0.50); Eosinophils % (auto) 2.3 %; Hematocrit (blood only) 37.7 % (37.0-47.0); Hemoglobin 12.3 g/dl (12.0-16.0); Immature Granulocytes # (auto) 0.01 K/uL (0.01-0.20); Immature Granulocytes % (auto) 0.1 %; Lymphocytes # (auto) 1.62 K/uL (1.20-3.40); Lymphocytes % (auto) 23.6 %; Mean Corpuscular Hemoglobin 27.3 pg (25.0-34.0); Mean Corpuscular Hgb Conc 32.6 g/dL (32.0-36.0); Mean Corpuscular Volume 83.6 fL (80.0-100.0); Mean Platelet Volume 9.1 fL (9.4-12.4); Monocytes # (auto) 0.43 K/uL (0.11-0.59); Monocytes % (auto) 6.3 %; Neutrophils # (auto) 4.61 K/uL (1.40-6.50); Neutrophils % (auto) 67.1 %; Platelet Count 194 K/uL (130-400); RDW Coefficient of Variation 14.5 % (11.5-14.5); RDW Standard Deviation 43.9 fL (36.4-46.3); Red Blood Count 4.51 M/uL (4.20-5.40); White Blood Count 6.87 K/ul (4.8-10.8)
[2023-07-02 11:11] LABS: BUN Creatinine Ratio 14.3 (10-20); Calcium 9.4 mg/dl (8.6-10.3); Est GFR (African American) 106.9 ml/min; Est GFR (Non-African American) 92.2 ml/min
--- NOTE | 2023-07-02 12:51 | Hospitalist Progress Note ---
Date of Service July 02, 2023 Assessment & Plan (1) Abdominal pain: Plan: Continue PPI therapy and Carafate. Diet advanced. Continue IV fluids for now. GI consultation and recommendations appreciated. Outpatient endoscopy recommended. No overt melena or hematochezia. Fecal occult blood is pending. She previously has had her gallbladder removed (2) Back pain: Plan: Lumbar spine CT negative for acute process. Pain control measures (3) Diabetes mellitus, type 2: Plan: Diet has been advanced. Sliding scale coverage. (4) Asthma: Plan: Stable. Continue current medical management (5) GERD (gastroesophageal reflux disease): Plan: She is on PPI therapy (6) HTN (hypertension): Plan: Stable. Continue current medical management with amlodipine (7) Hypothyroidism: Plan: Stable. Continue levothyroxine replacement therapy (8) Anxiety: Plan: Stable. Continue hydroxyzine PRN (9) Insomnia: Plan: Stable. Continue trazodone Plan Hopeful discharge back to home soon when abdominal pain abates Admission and Anticipated Discharge Date Admission Date: June 30, 2023 Subjective Alert and oriented. She continues to complain of severe abdominal pain. KUB x- ray is unremarkable. GI consultation noted. They recommend continued treatment with Protonix and dicyclomine and outpatient endoscopy. Fecal occult blood remains pending. Morphine switched to Dilaudid for better pain control. Abdomen is soft with active bowel sounds on examination. Review of Systems Review of Systems: Constitutional-no fever or chills ENT-no blurred vision, no double vision, no epistaxis, no sore throat Respiratory-no cough, no wheezing, no shortness of breath Cardiac-no palpitations, no chest pain, no syncope GI-epigastric pain. Intermittent nausea and cramping. No overt melena or hematochezia -no urinary retention, no urinary incontinence, no dysuria, no hematuria Musculoskeletal-no joint pain, no muscle tenderness Skin-no bruising, no rashes, no pruritus Neuro-no isolated weakness, no paresthesia, no weakness Psych-no depression, no anxiety Physical Exam Physical Exam: General-alert and oriented x3, no fevers, no chills HEENT-head atraumatic and normocephalic, pupils equal and reactive to light, extraocular muscles intact Neck-no lymphadenopathy or thyromegaly, trachea midline Chest-clear to auscultation percussion. No rales wheezing or rhonchi Cardiac-regular rate and rhythm, normal S1 and S2, no murmurs Abdomen-normal bowel sounds, no hepatosplenomegaly. Tender epigastric area. No masses. No rebound or guarding Extremities-no cyanosis, clubbing, or edema Neuro-cranial nerves II through XII intact, motor and sensory function within normal limits, strength symmetrical, no focal deficits Psych-normal affect, normal mood Results & Data Results & Data Vital Signs (Past 12 Hours) Vital Signs Temp Pulse Resp BP Pulse Ox O2 Del Method 07/02/23 07:34 36.6 C 77 16 128/77 96 Room Air Laboratory Results 07/02/23 10:41 07/02/23 10:40 PG Care Time/CCT Total # of Minutes Spent Total Time Spent with Patient: Total time spent is greater than 50% in coordination of care (as documented) at patient's floor/unit and/or counseling patient: Coding Level of Care Code 92278 SUB INP/OBS CARE 3/50MIN Diagnoses Abdominal pain R10.9 Back pain M54.9 Diabetes mellitus, type 2 E11.9 Asthma J45.909 GERD (gastroesophageal reflux disease) K21.9 HTN (hypertension) I10 Hypothyroidism E03.9 Anxiety F41.9 Insomnia G47.00
[2023-07-02] MEDS: HYDROmorphone INJ 2 MG/ML SYR/VIAL IV PRN ×4 (14:16→23:53)
[2023-07-02] MEDS: POLYETHYLENE (MIRALAX) 17 GM PACK PO SCH (16:39)
[2023-07-02] MEDS: ONDANSETRON INJ 2 MG/ML 2 ML VIAL IV PRN ×2 (17:24→20:52)
[2023-07-02] MEDS: traZODone HCL 50 MG TAB PO SCH (22:14)
[2023-07-03] MEDS ORDERED: PROCHLORPERAZINE 5 MG in SYRINGE 4 ML IV ONE (00:15)
[2023-07-03] MEDS: ACETAMINOPHEN 325 MG TAB PO SCH ×2 (03:05→07:56)
[2023-07-03] MEDS: DICYCLOMINE HCL 10 MG CAP PO SCH ×4 (03:06→20:12)
[2023-07-03] MEDS: LEVOTHYROXINE SODIUM 50 MCG TABLET PO SCH (05:01)
[2023-07-03] MEDS: ALUMINUM/MAGNESIUM SUSP 30 ML UDC PO SCH (05:01)
[2023-07-03] MEDS: HYDROmorphone INJ 2 MG/ML SYR/VIAL IV PRN ×5 (05:04→23:05)
[2023-07-03] MEDS: PANTOprazole 40 MG TAB PO SCH ×2 (09:51→20:12)
[2023-07-03] MEDS: amLODIPine BESYLATE 5 MG TAB PO SCH (09:51)
[2023-07-03] MEDS: CETIRIZINE HCL 10 MG TABLET PO SCH (09:51)
[2023-07-03] MEDS: SUCRALFATE 1 GM TAB PO SCH ×4 (09:51→20:12)
[2023-07-03] MEDS: MONTELUKAST SODIUM 10 MG TABLET PO SCH (09:51)
[2023-07-03] MEDS: POLYETHYLENE (MIRALAX) 17 GM PACK PO SCH (09:51)
[2023-07-03] MEDS: FLUTICASONE/VILANTEROL 100/25MCG 14 PUFFS/INHALER INH SCH (09:52)
[2023-07-03] MEDS: SODIUM CHLORIDE 0.9% 1,000 ML IV SCH ×2 (10:37→23:05)
[2023-07-03] MEDS: METOCLOPRAMIDE HCL INJ 5 MG/ML 2 ML VIAL IV SCH ×3 (11:06→23:05)
--- NOTE | 2023-07-03 15:41 | Hospitalist Progress Note ---
Date of Service July 03, 2023 Assessment & Plan (1) Abdominal pain: Plan: Continue PPI therapy and Carafate. Intravenous Reglan added today, July 03. Repeat lipase is normal. Will ask GI service to reevaluate on Wednesday. I suspect she will need endoscopy done this admission. Continue IV fluids for now. No overt melena or hematochezia. Fecal occult blood is pending. She previously has had her gallbladder removed (2) Back pain: Plan: Lumbar spine CT negative for acute process. Pain control measures (3) Diabetes mellitus, type 2: Plan: Poor p.o. intake. Sliding scale coverage. (4) Asthma: Plan: Stable. Continue current medical management (5) GERD (gastroesophageal reflux disease): Plan: She is on PPI therapy (6) HTN (hypertension): Plan: Stable. Continue current medical management with amlodipine (7) Hypothyroidism: Plan: Stable. Continue levothyroxine replacement therapy (8) Anxiety: Plan: Stable. Continue hydroxyzine PRN (9) Insomnia: Plan: Stable. Continue trazodone Plan Hopeful discharge back to home soon when abdominal pain abates Admission and Anticipated Discharge Date Admission Date: July 02, 2023 Subjective Alert and oriented. Continued abdominal discomfort. Repeat lipase is normal. Intravenous Reglan added. She remains on Protonix and Carafate. I suspect she will need endoscopy performed this admission Review of Systems Review of Systems: Constitutional-no fever or chills ENT-no blurred vision, no double vision, no epistaxis, no sore throat Respiratory-no cough, no wheezing, no shortness of breath Cardiac-no palpitations, no chest pain, no syncope GI-intermittent nausea and cramping. No melena, no hematochezia -no urinary retention, no urinary incontinence, no dysuria, no hematuria Musculoskeletal-no joint pain, no muscle tenderness Skin-no bruising, no rashes, no pruritus Neuro-no isolated weakness, no paresthesia, no weakness Psych-no depression, no anxiety Physical Exam Physical Exam: General-alert and oriented x3, no fevers, no chills HEENT-head atraumatic and normocephalic, pupils equal and reactive to light, extraocular muscles intact Neck-no lymphadenopathy or thyromegaly, trachea midline Chest-clear to auscultation percussion. No rales wheezing or rhonchi Cardiac-regular rate and rhythm, normal S1 and S2, no murmurs Abdomen-normal bowel sounds, no hepatosplenomegaly. Diffusely tender abdomen. No rebound or guarding. No palpable masses. Extremities-no cyanosis, clubbing, or edema Neuro-cranial nerves II through XII intact, motor and sensory function within normal limits, strength symmetrical, no focal deficits Psych-depressed affect Results & Data Results & Data Vital Signs (Past 12 Hours) Vital Signs Temp Pulse Resp BP Pulse Ox O2 Del Method 07/03/23 07:35 36.8 C 79 16 136/76 94 Room Air Laboratory Results 07/02/23 10:41 07/02/23 10:40 PG Care Time/CCT Total # of Minutes Spent Total Time Spent with Patient: Total time spent is greater than 50% in coordination of care (as documented) at patient's floor/unit and/or counseling patient: Coding Level of Care Code 48357 SUB INP/OBS CARE 3/50MIN Diagnoses Abdominal pain R10.9 Back pain M54.9 Diabetes mellitus, type 2 E11.9 Asthma J45.909 GERD (gastroesophageal reflux disease) K21.9 HTN (hypertension) I10 Hypothyroidism E03.9 Anxiety F41.9 Insomnia G47.00
[2023-07-03] MEDS: traZODone HCL 50 MG TAB PO SCH (23:04)
[2023-07-03] MEDS ORDERED: diphenhydrAMINE Capsule 25 MG CAP PO ONE (23:29)
[2023-07-04] MEDS: HYDROmorphone INJ 2 MG/ML SYR/VIAL IV PRN ×5 (02:10→21:09)
[2023-07-04] MEDS: DICYCLOMINE HCL 10 MG CAP PO SCH ×4 (02:13→21:14)
[2023-07-04] MEDS: LEVOTHYROXINE SODIUM 50 MCG TABLET PO SCH (05:14)
[2023-07-04] MEDS: METOCLOPRAMIDE HCL INJ 5 MG/ML 2 ML VIAL IV SCH ×4 (05:14→23:52)
[2023-07-04] MEDS: amLODIPine BESYLATE 5 MG TAB PO SCH (08:17)
[2023-07-04] MEDS: POLYETHYLENE (MIRALAX) 17 GM PACK PO SCH (08:17)
[2023-07-04] MEDS: MONTELUKAST SODIUM 10 MG TABLET PO SCH (08:17)
[2023-07-04] MEDS: PANTOprazole 40 MG TAB PO SCH ×2 (08:17→21:14)
[2023-07-04] MEDS: SUCRALFATE 1 GM TAB PO SCH ×4 (08:17→21:14)
[2023-07-04] MEDS: CETIRIZINE HCL 10 MG TABLET PO SCH (08:17)
[2023-07-04] MEDS: FLUTICASONE/VILANTEROL 100/25MCG 14 PUFFS/INHALER INH SCH (08:20)
--- NOTE | 2023-07-04 12:05 | XRay Report ---
THORACIC SPINE 3 VIEWS, LUMBAR SPINE 3 VIEWS HISTORY: back pain COMPARISON: Chest CTA 01/16/2023. Lumbar spine CT 06/30/2023. FINDINGS: Thoracic spine: There is moderate to severe degenerative disc disease within the thoracic spine. This most pronounced within the upper thoracic spine. There are small endplate osteophytes within the tho racic spine. Paravertebral soft tissues are unremarkable. No subluxation. Mild levoscoliosis of the t horacic spine. Lumbar spine: Prior cholecystectomy. The sacrum is intact. Mild anterior wedging at L5, unchanged. T his is considered to be chronic. There is 4 mm of anterolisthesis of L4 on L5, unchanged. Focal inden tation at the superior endplate of L4 is unchanged and favors a Schmorl's node. No acute fractures id entified. Severe disc space narrowing at L2-L3, unchanged. Moderate facet degenerative changes within the lumbar spine. IMPRESSION: 1. No acute fractures within the thoracic or lumbar spine. 2. Old mild anterior wedge-shaped compression deformity at L5 again noted. 3. Degenerative changes as described above. ACT 112: Negative or not required by law. Electronically signed by: Omar Clinton M.D. 07/04/2023 12:03 PM
--- NOTE | 2023-07-04 12:49 | Hospitalist Progress Note ---
Date of Service July 04, 2023 Assessment & Plan (1) Abdominal pain: Plan: Continue PPI therapy and Carafate. Intravenous Reglan added on July 03. Repeat lipase is normal. Will ask GI service to reevaluate on Wednesday. I suspect she will need endoscopy done this admission. Continue IV fluids for now. No overt melena or hematochezia. Fecal occult blood is negative. She previously has had her gallbladder removed (2) Back pain: Plan: Previous lumbar MRI scan January 2022 reviewed. Lumbar and thoracic x-rays were performed today, July 04. Thoracic MRI scan pending. Pain control measures (3) Diabetes mellitus, type 2: Plan: Poor p.o. intake. Sliding scale coverage. (4) Asthma: Plan: Stable. Continue current medical management (5) GERD (gastroesophageal reflux disease): Plan: She is on PPI therapy (6) HTN (hypertension): Plan: Stable. Continue current medical management with amlodipine (7) Hypothyroidism: Plan: Stable. Continue levothyroxine replacement therapy (8) Anxiety: Plan: Stable. Continue hydroxyzine PRN (9) Insomnia: Plan: Stable. Continue trazodone Plan To be determined pending results of thoracic spine MRI Admission and Anticipated Discharge Date Admission Date: July 02, 2023 Subjective No change. She is frustrating. Lumbar and thoracic x-rays obtained and noted. She had a previous lumbar MRI scan in January 2022 with severe left L1-L2 foraminal stenosis. Thoracic spine MRI is pending. She has extensive degenerative disc disease noted on thoracic spine x-rays. Review of Systems Review of Systems: Constitutional-no fever or chills ENT-no blurred vision, no double vision, no epistaxis, no sore throat Respiratory-no cough, no wheezing, no shortness of breath Cardiac-no palpitations, no chest pain, no syncope GI-intermittent nausea and cramping. No melena, no hematochezia -no urinary retention, no urinary incontinence, no dysuria, no hematuria Musculoskeletal-no joint pain, no muscle tenderness Skin-no bruising, no rashes, no pruritus Neuro-no isolated weakness, no paresthesia, no weakness Psych-no depression, no anxiety Physical Exam Physical Exam: General-alert and oriented x3, no fevers, no chills HEENT-head atraumatic and normocephalic, pupils equal and reactive to light, extraocular muscles intact Neck-no lymphadenopathy or thyromegaly, trachea midline Chest-clear to auscultation percussion. No rales wheezing or rhonchi Cardiac-regular rate and rhythm, normal S1 and S2, no murmurs Abdomen-normal bowel sounds, no hepatosplenomegaly. Diffusely tender abdomen. No rebound or guarding. No palpable masses. Extremities-no cyanosis, clubbing, or edema Neuro-cranial nerves II through XII intact, motor and sensory function within normal limits, strength symmetrical, no focal deficits Psych-depressed affect Results & Data Results & Data Vital Signs (Past 12 Hours) Vital Signs Temp Pulse Resp BP Pulse Ox O2 Del Method 07/04/23 07:28 36.6 C 82 16 155/85 H 95 Room Air Laboratory Results 07/02/23 10:41 07/02/23 10:40 PG Care Time/CCT Total # of Minutes Spent Total Time Spent with Patient: Total time spent is greater than 50% in coordination of care (as documented) at patient's floor/unit and/or counseling patient: Coding Level of Care Code 37648 SUB INP/OBS CARE 3/50MIN Diagnoses Abdominal pain R10.9 Back pain M54.9 Diabetes mellitus, type 2 E11.9 Asthma J45.909 GERD (gastroesophageal reflux disease) K21.9 HTN (hypertension) I10 Hypothyroidism E03.9 Anxiety F41.9 Insomnia G47.00
[2023-07-04] MEDS: SODIUM CHLORIDE 0.9% 1,000 ML IV SCH ×2 (13:08→23:45)
[2023-07-04] MEDS ORDERED: LORazepam 2 MG/1 ML VIAL IV STA (15:10)
--- NOTE | 2023-07-04 20:35 | Magnetic Resonance Report ---
MRI OF THE THORACIC SPINE WITHOUT IV CONTRAST CLINICAL HISTORY: Thoracic back pain. Degenerative disc disease. COMPARISON STUDY: Chest CT dated 01/16/2023. Radiograph of the thoracic spine dated 07/04/2023. TECHNIQUE: MRI of the thoracic spine is performed utilizing various T1 and T2 sequences in the axial and sagittal planes. IV contrast was not administered for this examination. The examination is degrad ed by motion artifact. FINDINGS: Vertebral body height and alignment are maintained throughout the thoracic spine. There is minimal retrolisthesis at L1-L2. There is no MRI evidence of fracture. The spinous processes are nadja sly intact. Anterior osteophytes are seen throughout. Mild hyperkyphosis is observed. No destructive bony lesion is seen. Mild chronic degenerative endplate change is seen at several levels. No signific ant endplate edema is identified. Degenerative disc desiccation and loss of height is seen throughout the thoracic spine. Posterior disc bulges are seen at all levels between T3-T4 and T11-T12. This is greatest at T7-T8 and T8-T9, and disc bulge abuts the ventral cord at T7-T8. No high-grade central ca nal stenosis is seen throughout the thoracic region. There is no MRI evidence of high-grade neural fo raminal stenosis throughout the thoracic region. Severe left neural foraminal narrowing is suggested at L1-L2. The thoracic spinal cord is normal in morphology. The conus medullaris terminates at the le lyle of L1. There is focal dilatation of the central canal of the spinal cord seen at T1 on sagittal i mage #10. This measures up to 3 mm in AP diameter and extends 7 mm in length. There is no thinning of the cord at this level to suggest myelomalacia. Myelomalacia is suspected within the lower cervical cord at the level of C5. There is significant degenerative disc disease with central canal stenosis a t C5-C6 and C6-C7. The paraspinous soft tissues are within normal limits. Small pleural effusions are noted. A mild chronic compression deformity of L5 is suggested on the grinder operator automatic sequence. IMPRESSION: 1. No acute bony abnormality or destructive bony lesion is seen involving the thoracic spine. 2. Multilevel degenerative disc disease as above, greatest at T7-T8 and T8-T9. There is no MR evidenc e of high-grade central canal stenosis throughout the thoracic region. 3. There is focal dilatation of the central canal of the spinal cord/a tiny syrinx at T1 as detailed above. There is no thinning of the cord to suggest myelomalacia. This is likely chronic. 4. Degenerative disc disease and central canal stenosis in the lower cervical region. Focal myelomala subhash is suspected within the cervical cord at the level of C5. 5. Small pleural effusions 6. Additional findings as above. Electronically signed by: Jay Jay Colin M.D. 07/04/2023 8:32 PM
[2023-07-04] MEDS: traZODone HCL 50 MG TAB PO SCH (21:14)
[2023-07-05] MEDS: HYDROmorphone INJ 2 MG/ML SYR/VIAL IV PRN ×4 (00:55→11:52)
[2023-07-05] MEDS: DICYCLOMINE HCL 10 MG CAP PO SCH ×3 (02:10→13:20)
[2023-07-05] MEDS: METOCLOPRAMIDE HCL INJ 5 MG/ML 2 ML VIAL IV SCH ×2 (05:46→11:52)
[2023-07-05] MEDS: LEVOTHYROXINE SODIUM 50 MCG TABLET PO SCH (05:46)
[2023-07-05] MEDS: SUCRALFATE 1 GM TAB PO SCH ×2 (07:26→11:52)
[2023-07-05] MEDS: MONTELUKAST SODIUM 10 MG TABLET PO SCH (07:26)
[2023-07-05] MEDS: CETIRIZINE HCL 10 MG TABLET PO SCH (07:26)
[2023-07-05] MEDS: amLODIPine BESYLATE 5 MG TAB PO SCH (07:26)
[2023-07-05] MEDS: PANTOprazole 40 MG TAB PO SCH (07:27)
[2023-07-05] MEDS: FLUTICASONE/VILANTEROL 100/25MCG 14 PUFFS/INHALER INH SCH (07:27)
[2023-07-05] MEDS: POLYETHYLENE (MIRALAX) 17 GM PACK PO SCH (07:31)
[2023-07-05] MEDS: SODIUM CHLORIDE 0.9% 1,000 ML IV SCH (11:51)
--- NOTE | 2023-07-05 12:06 | Discharge Summary ---
Date of Service July 05, 2023 Admission HPI Per Admitting Provider Pt is 63 yo F with PMH HTN, asthma, anxiety, hypothyroidism, GERD, insomnia presenting with abdominal pain. Pt reports onset of sharp back/flank/abdominal pain 1 month prior- R back wrapping lower ribcage to RUQ and RLQ. She was seen in ER on 06/09 with largely negative workup including CTAP but was diagnosed with suspected mild diverticulitis and treated with antibiotics as outpatient (reports ciprofloxacin was one of these medications, cannot recall other) which did not improve her symptoms. Her symptoms were tolerable but then worsened in severity on 06/26 to 08/03 pain and now bilateral. She has been taking 600 mg ibuprofen BID daily along with Tylenol and Epsom salt baths since then which has helped with mild symptom relief. She reports associated symptoms of nausea, reduced appetite, chills, myalgias, bloating. Denies fevers, vomiting, overt diarrhea/constipation. She does report COVID exposure via her neighbor 1 week prior but has not had any respiratory symptoms. Pt arrived to ER hemodynamically stable. Initial evaluation with unremarkable CBC, CMP, lumbar spine CT, CTAP. ER interventions include morphine 4 mg IV x2, Tylenol 1000 mg IV, 1L NSS bolus, Zofran 4 mg IV, Bentyl 10 mg, Toradol 10 mg IV, Dilaudid 1 mg IV, famotidine 20 mg IV. At present, pt reports mild symptom relief from pain medications, denies any new complaints. Principal Diagnosis Back pain due to thoracic and lumbar spine degenerative disc disease, possible referred abdominal pain Discharge Exam General-alert and oriented x3, no fevers, no chills HEENT-head atraumatic and normocephalic, pupils equal and reactive to light, extraocular muscles intact Neck-no lymphadenopathy or thyromegaly, trachea midline Chest-clear to auscultation percussion. No rales wheezing or rhonchi Cardiac-regular rate and rhythm, normal S1 and S2, no murmurs Abdomen-normal bowel sounds, no hepatosplenomegaly. Diffusely tender abdomen. No rebound or guarding. No palpable masses. Extremities-no cyanosis, clubbing, or edema Neuro-cranial nerves II through XII intact, motor and sensory function within normal limits, strength symmetrical, no focal deficits Psych-depressed affect Discharge Data Allergies Allergy/AdvReac Type Severity Reaction Status Date / Time amoxicillin Allergy Intermediate RED Verified 06/30/23 18:36 "BLOTCHES" doxycycline Allergy Intermediate RED Verified 06/30/23 18:36 "BLOTCHES" Sulfa (Sulfonamide Allergy Intermediate RED Verified 06/30/23 18:36 Antibiotics) "BLOTCHES". Consultations 06/30/23 21:06 ED Decision to Admit Stat 07/01/23 12:44 Consult Gastroenterology Routine Ordered Studies 06/30/23 14:28 CT lumbar spine w con Stat 06/30/23 14:29 CT abd pelvis IV con only Stat 07/04/23 12:46 MRI Thoracic [MR thoracic spine wo con] Urgent Hospital Course (1) Abdominal pain: Continue PPI therapy and Carafate while hospitalized. Fecal occult blood is negative. GI consultation appreciated. Outpatient endoscopy is recommended. Some of her abdominal pain could be referred from her back. We will treat at discharge with a prednisone tapering dose and gauge response. No evidence of acute pancreatitis. Lipase is normal. No overt melena or hematochezia. Fecal occult blood is negative. She previously has had her gallbladder removed (2) Back pain: Previous lumbar MRI scan January 2022 reviewed. Lumbar and thoracic x-rays were performed on July 04. Thoracic MRI scan was also done and reveals degenerative disc disease which could be producing some referred abdominal pain. We will treat at discharge with a prednisone tapering dose. Continue pain control measures (3) Diabetes mellitus, type 2: Diabetic diet. Sliding scale coverage. (4) Asthma: Stable. Continue current medical management (5) GERD (gastroesophageal reflux disease): She is on PPI therapy (6) HTN (hypertension): Stable. Continue current medical management with amlodipine (7) Hypothyroidism: Stable. Continue levothyroxine replacement therapy (8) Anxiety: Stable. Continue hydroxyzine PRN (9) Insomnia: Stable. Continue trazodone Plan Home today, July 05 Total Time Total Time Spent Total Time Spent (In Minutes): 45 minutes Discharge Plan Discharge Items Patient Disposition: Home - Self-Care Reason For Visit: ABD/BACK PAIN Discharge Diagnosis: Degenerative disc disease of thoracic and lumbar spine, possible referred abdominal pain Activity: Resume your previous activity Non-emergency contact: Primary Care Provider Call non-emergency contact if: your symptoms worsen Follow-up/Referrals: Keri Lou PA-C [Primary Care Provider] - Diet: Carb Consistent or DM2 Addtl Attending Provider Instructions: Take prednisone in a tapering dose fashion to see if this helps with your current symptoms. Use oxycodone as needed for pain control. Continue omeprazole and dicyclomine Pending Studies at Discharge: No Stand-Alone Forms: My [facility], Smoking Cessation Medications and DC Order Prescriptions: New prednisone 10 mg tablet See Rx Instructions .ROUTE .COMPLEX Qty: 12 0RF Rx Instructions: 10 mg orally 3 times a day for 2 days, then 10 mg twice a day for 2 days, the n 10 mg once a day for 2 days, then stop oxycodone 5 mg capsule 5 mg PO Q6H PRN (Reason: pain) Qty: 14 0RF Continued diclofenac sodium 75 mg tablet,delayed release (DR/EC) 75 mg PO BID PRN (Reason: Pain) Dulera 100-5 mcg/actuation HFA aerosol inhaler 2 puff inhalation BID Qty: 13 2RF montelukast [Singulair] 10 mg tablet 10 mg PO DAILY levothyroxine 50 mcg capsule 50 mcg PO DAILY omeprazole 20 mg capsule,delayed release(DR/EC) 20 mg PO DAILY cetirizine 10 mg tablet 10 mg PO BID trazodone 150 mg tablet 150 mg PO HS albuterol sulfate 2.5 mg /3 mL (0.083 %) solution for nebulization 2.5 mg inhalation Q6H PRN (Reason: cough/wheeze/shortness of breath) Qty: 90 0RF (DME) OneTouch Verio test strips Strip See Rx Instructions .Route Qty: 100 1RF Rx Instructions: check sugars at least 1x/day (DME) lancets [OneTouch Delica Lancets] 33 gauge misc See Rx Instructions .Route Qty: 100 1RF Rx Instructions: check sugars at least 1x/day albuterol sulfate 90 mcg/actuation aero powdr breath act w/sensor 2 puffs INH Q4H PRN (Reason: cough/wheeze/shortness of breath) Qty: 1 0RF amlodipine 10 mg tablet 10 mg PO DAILY Qty: 30 2RF Rx Instructions: for high blood pressure hydroxyzine HCl 25 mg Tablet 25 mg PO BID PRN (Reason: Anxiety) dicyclomine 10 mg capsule 10 - 20 mg PO QID PRN (Reason: ABD CRAMPING) Discharge Orders: Discharge Order (Routine); Ordered 07/05/23 Ordered By: Jignesh Garcia Admission Data Admit Date/Time: 07/02/23 11:31 Attending Provider: Jignesh Garcia Admit Provider: Emily Romero Primary Care Provider: Keri Lou Other Providers: Emily Romero ; Barbara Beaulieu ; Al Duarte ; Christa Dias ; Kirsten Toure ; Renetta Jameson ; Oksana Silver ; Trent Perry ; Alessandro Moses ; Jakub Shultz ; [place] ; Ayan Herman ; Stefany Trivedi ; Tanya Butts ; Bertha Araya ; Monie Owen ; Abilio Maharaj ; Skinny Baker ; Yunior Arrington ; Isidra Mckenzie ; Chanda Mena Jr Coding Level of Care Code [id number] INP/OBS DISCH >30 MIN Diagnoses Abdominal pain R10.9 Back pain M54.9 Diabetes mellitus, type 2 E11.9 Asthma J45.909 GERD (gastroesophageal reflux disease) K21.9 HTN (hypertension) I10 Hypothyroidism E03.9 Anxiety F41.9 Insomnia G47.00
== END 2023-07-05 14:04 | disposition home or self-care (01) | DRG 552 ==
LOC: ED 14:13 → 3W 14:13 → SUATTDRO 21:38 → 3W 23:58